=== PATIENT | male | born 1955 | race Caucasian/White ===

== ENCOUNTER 2016-10-15 19:58 | Emergency (ER) | payer SELFPAY ==
[~2016-10-15 19:58] MED LIST: LEVE500 PO; MEMA5 PO; MIRTA15 PO
--- NOTE | 2016-10-15 20:08 | PD ---
HPI . 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 PFSH Social History Tobacco Use: Yes Review of Systems ROS Limitations: Altered Mental Status, Poor Historian Except as stated in HPI: all other systems reviewed are Neg Physical Exam Narrative GENERAL: Disheveled, older man who is sitting in the wheelchair in no acute distress. SKIN: Warm and dry. HEAD: Atraumatic. Normocephalic. EYES: Pupils equal and round. Extraocular movements are intact. ENT: No nasal bleeding or discharge. Mucous membranes pink and moist. NECK: Trachea midline. Neck is supple. CARDIOVASCULAR: Regular rate and rhythm. Heart sounds are normal. RESPIRATORY: No accessory muscle use. Lungs sound clear. GASTROINTESTINAL: Abdomen soft, non-tender, nondistended. MUSCULOSKELETAL: No obvious deformities. No edema. NEUROLOGICAL: Awake and alert. No obvious cranial nerve deficits. Motor grossly within normal limits. Normal speech. PSYCHIATRIC: The patient is able to tell me his name and that he is in a hospital in [facility]. He does not know the day of the week, the month, or the year. Data Data Last Documented VS Vital Signs Date Time Temp Pulse Resp B/P Pulse Ox O2 Delivery O2 Flow Rate FiO2 10/15/16 20:20 97.2 73 18 145/75 98 Orders Complete Blood Count With Diff (10/15/16 20:03) Comprehensive Metabolic Panel (10/15/16 20:03) Urinalysis - C+S If Indicated (10/15/16 20:03) Psych Screen (10/15/16 20:03) Drug Screen, Random Urine (10/15/16 20:03) Alcohol (Ethanol) (10/15/16 20:03) Labs Laboratory Tests Test 10/15/16 20:35 White Blood Count 3.7 TH/MM3 Red Blood Count 4.00 MIL/MM3 Hemoglobin 12.8 GM/DL Hematocrit 36.5 % Mean Corpuscular Volume 91.3 FL Mean Corpuscular Hemoglobin 32.1 PG Mean Corpuscular Hemoglobin 35.2 % Concent Red Cell Distribution Width 13.1 % Platelet Count 59 TH/MM3 Mean Platelet Volume 7.9 FL Neutrophils (%) (Auto) 56.1 % Lymphocytes (%) (Auto) 27.6 % Monocytes (%) (Auto) 15.2 % Eosinophils (%) (Auto) 0.8 % Basophils (%) (Auto) 0.3 % Neutrophils # (Auto) 2.1 TH/MM3 Lymphocytes # (Auto) 1.0 TH/MM3 Monocytes # (Auto) 0.6 TH/MM3 Eosinophils # (Auto) 0.0 TH/MM3 Basophils # (Auto) 0.0 TH/MM3 CBC Comment AUTO DIFF Sodium Level 142 MEQ/L Potassium Level 3.9 MEQ/L Chloride Level 108 MEQ/L Carbon Dioxide Level 29.4 MEQ/L Anion Gap 5 MEQ/L Blood Urea Nitrogen 14 MG/DL Creatinine 1.10 MG/DL Estimat Glomerular Filtration 68 ML/MIN Rate Random Glucose 96 MG/DL Calcium Level 8.6 MG/DL Total Bilirubin 0.4 MG/DL Aspartate Amino Transf 56 U/L (AST/SGOT) Alanine Aminotransferase 100 U/L (ALT/SGPT) Alkaline Phosphatase 142 U/L Total Protein 7.6 GM/DL Albumin 3.5 GM/DL Ethyl Alcohol Level LESS THAN 3 MG/DL MDM Medical Decision Making Medical Screen Exam Complete: Yes Emergency Medical Condition: Yes Medical Record Reviewed: Yes (the patient really doesn't have any records in our system.) Differential Diagnosis Differential diagnosis of altered mental status includes but is not limited to infection, electrolyte abnormality, neurological event, intoxication Narrative Course Patient presents to us from a psychiatric facility for dementia and inability to care for himself. The patient will be medically cleared and then screened by side. CBC & BMP Diagram 10/15/16 20:35 Total bilirubin 0.4, AST 56, ALT 100, alkaline phosphatase 142. He is medically clear for psychiatric evaluation. Diagnosis Primary Impression: Dementia Qualified Code: F03.91 - Dementia associated with alcoholism with behavioral disturbance Condition: Stable Maria Isabel Woodward MD Oct 15, 2016 20:08
[2016-10-15 20:20] VITALS: BP 145/75; PULSE 73; RESP 18; TEMP 97.2; O2SAT 98
[2016-10-15 20:54] LABS: AUTOMATED NEUTROPHIL # 2.1 TH/MM3 (1.8-7.7); BASOPHIL % 0.3 % (0.0-2.0); EOSINOPHIL % 0.8 % (0.0-4.0); HEMATOCRIT 36.5 % (39.0-51.0); LYMPH % 27.6 % (9.0-44.0); MEAN CELL VOLUME 91.3 FL (80.0-100.0); MEAN CORPUSCULAR HEMOGLOBIN 32.1 PG (27.0-34.0); MEAN CORPUSCULAR HGB CONC 35.2 % (32.0-36.0); MONO % 15.2 % (0.0-8.0); NEUT % 56.1 % (16.0-70.0); PLATELET COUNT 59 TH/MM3 (150-450); RED CELL DISTRIBUTION WIDTH 13.1 % (11.6-17.2); WHITE BLOOD COUNT 3.7 TH/MM3 (4.0-11.0)
[2016-10-15 21:00] LABS: HEMO FLAGS AUTO DIFF
[2016-10-15 21:09] LABS: ANION GAP 5 MEQ/L (5-15)
[2016-10-15 21:14] LABS: ALKALINE PHOSPHATASE 142 U/L (45-117); ALT (GPT) 100 U/L (12-78); AST (GOT) 56 U/L (15-37); BICARBONATE 29.4 MEQ/L (21.0-32.0); BLOOD UREA NITROGEN 14 MG/DL (7-18); CHLORIDE 108 MEQ/L (98-107); GLOMERULAR FILTRATION RATE 68 ML/MIN (>89); POTASSIUM 3.9 MEQ/L (3.5-5.1); SODIUM (NA) 142 MEQ/L (136-145); TOTAL BILIRUBIN ADULT 0.4 MG/DL (0.2-1.0)
[2016-10-15 21:41] LABS: SCAN/DIFF AUTO DIFF CONFIRMED
[2016-10-16 01:24] VITALS: BP 136/72; PULSE 76; RESP 16; O2SAT 96
[2016-10-16 06:32] VITALS: BP_SYST 111; BP_SYST 157; BP_DIAS 65; BP_DIAS 76; PULSE 67; PULSE 75; RESP 17; RESP 20; O2SAT 95; O2SAT 99
[2016-10-16] MEDS ORDERED: ACETAMINOPHEN 325 MG TAB PO ONE (08:45)
[2016-10-16 11:53] VITALS: BP 157/76; PULSE 76; RESP 20; O2SAT 99
[2016-10-16 14:23] VITALS: BP 161/78; PULSE 81; RESP 18; O2SAT 94
--- NOTE | 2016-10-16 16:17 | PD ---
History of Present Illness Chief Complaint: Psychiatric Symptoms Time Seen by Provider: 15:15 Travel History International Travel<30 Days: No Contact w/Intl Traveler<30days: No Known affected area: No Legal Status Legal Status: Wolf Act Wolf Act Comment: BA signed by: Rosa Chen LCSW, Lic. 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 Documentation that is received from [facility] he was originally placed under a BA from [facility] on Sep for evaluation. This BA report also orders that in the event that the BA is lifted that the [facility] Sheriff's office be contacted so that he can be taken back to the appropriate senior living center. History and clinical information is limited due to the patient's inability to provide information. As per EMR this patient has had no previous contact with [facility] psychiatry department. He has been monitored in J pod and he has presented no behavioral concerns. he has required assistance with all ADL's. He is awake, calm and pleasant on approach. He appears older than stated age. He reports that he is 30 years old and that it is 1976. He knows that he is in the hospital but is unclear why he is here. He volunteers " They want to put me back in correction". Speech is clear and he answers most questions. He denies any current hallucinations. There are no delusions and no paranoia. He has been under behavioral control and has not been agitated for most of the day. At some point when he got up to walk to the bathroom a male staff member followed him as he was unsteady and the patient became upset with such staff member. He deescalated quickly with verbal intervention and apologized to such staff member. He slept well and ate all his meals. he was bale to make his needs known to staff members. [facility] Past Medical History Medical History: Denies Significant Hx Cerebrovascular Accident: Yes Respiratory: Yes Past Surgical History Tonsillectomy: Yes Psychiatric History Psychiatric History Hx Psychiatric Treatment: As per records accompanying this patietn he received tretametn for depression as well as previous admissions under BA status. History of Inpatient Treatment: Yes Guns or firearms in home: No Social History As per records included in this report he is single. Has been at [facility] since 2014. Hx of multiple arrests since 1976 Hx Alcohol Use: Yes (too much) Hx Tobacco Use: Yes Hx Substance Use: Yes (marijuana) Allergies-Medications (Allergen,Severity, Reaction): Coded Allergies: No Known Allergies (Unverified , 10/16/16) Reported Meds & Prescriptions Reported Meds & Active Scripts Active Active Prescriptions or Reported Medications Unobtainable Review of Systems ROS Limitations: Clinical Condition Exam Alert: Yes [place]: Person, Place (Knows he is in a hospital ), Date (1976 ) Mood: Calm Affect: Euthymic Speech: Clear (Limited repsonses but makes an effort at answering questions.) Eye Contact: Normal Memory Intact: Comment (impaired) Hallucinations: Other (deneis any) Suicidal: Ideation (denies ) Homicidal: Ideation (denies) Insight/Judgement poor. impaired MDM Medical Decision Making Medical Record Reviewed: Yes Assessment/Plan 61 year old male with history of alcohol dependence and neurocognitive impairment under a BA. At this time he does not endorse any psychosis, no aminah and no suicidal or homicidal ideation, intent or plan. He does exhibit memory impairment but there are no benefits to be obtained from an inpatient psychiatric hospitalization. He has been stabilized on current medications for some time now. He does not meet criteria for BA . He will be returned to the custody of the dept of corrections. Orders Complete Blood Count With Diff (10/15/16 20:03) Comprehensive Metabolic Panel (10/15/16 20:03) Urinalysis - C+S If Indicated (10/15/16 20:03) Psych Screen (10/15/16 20:03) Drug Screen, Random Urine (10/15/16 20:03) Alcohol (Ethanol) (10/15/16 20:03) Diet Regular Basic (10/16/16 Breakfast) Acetaminophen (Tylenol) (10/16/16 08:45) Diet Regular Basic (10/16/16 Lunch) Quetiapine (Seroquel) (10/16/16 16:30) Sertraline (Zoloft) (10/16/16 16:30) Sertraline (Zoloft) (10/16/16 16:30) Results Vital Signs Date Time Temp Pulse Resp B/P Pulse Ox O2 Delivery O2 Flow Rate FiO2 10/16/16 14:23 81 18 161/78 94 Room Air 10/16/16 11:53 76 20 157/76 99 Room Air 10/16/16 06:32 75 20 157/76 99 Room Air 10/16/16 01:24 76 16 136/72 96 Room Air 10/15/16 20:20 97.2 73 18 145/75 98 Laboratory Tests Test 10/15/16 20:35 White Blood Count 3.7 Red Blood Count 4.00 Hemoglobin 12.8 Hematocrit 36.5 Mean Corpuscular Volume 91.3 Mean Corpuscular Hemoglobin 32.1 Mean Corpuscular Hemoglobin 35.2 Concent Red Cell Distribution Width 13.1 Platelet Count 59 Mean Platelet Volume 7.9 Neutrophils (%) (Auto) 56.1 Lymphocytes (%) (Auto) 27.6 Monocytes (%) (Auto) 15.2 Eosinophils (%) (Auto) 0.8 Basophils (%) (Auto) 0.3 Neutrophils # (Auto) 2.1 Lymphocytes # (Auto) 1.0 Monocytes # (Auto) 0.6 Eosinophils # (Auto) 0.0 Basophils # (Auto) 0.0 CBC Comment AUTO DIFF Differential Comment AUTO DIFF CONFIRMED Sodium Level 142 Potassium Level 3.9 Chloride Level 108 Carbon Dioxide Level 29.4 Anion Gap 5 Blood Urea Nitrogen 14 Creatinine 1.10 Estimat Glomerular Filtration 68 Rate Random Glucose 96 Calcium Level 8.6 Total Bilirubin 0.4 Aspartate Amino Transf 56 (AST/SGOT) Alanine Aminotransferase 100 (ALT/SGPT) Alkaline Phosphatase 142 Total Protein 7.6 Albumin 3.5 Ethyl Alcohol Level LESS THAN 3 Diagnosis Primary Impression: Dementia Psychiatrically Cleared: Yes Prescriptions Unable to Obtain Active Prescriptions or Reported Meds Disposition: [address] ENFORCEMNT Condition: Stable Problem Qualifiers Primary Impression: Dementia Qualified Code: F03.91 - Dementia associated with alcoholism with behavioral disturbance Li Zepeda Oct 16, 2016 16:17
[2016-10-16] MEDS ORDERED: SERTRALINE HCL 100 MG TAB PO ONE (16:30)
[2016-10-16] MEDS ORDERED: SERTRALINE HCL 50 MG TAB PO ONE (16:30)
[2016-10-16] MEDS ORDERED: QUEtiapine FUMARATE 200 MG TAB PO ONE (16:30)
== END 2016-10-16 20:11 | disposition home or self-care (01) ==
LOC: NEPA 19:58 → MERGE 19:58 → NEPJ 10-16 20:11
DX: F03.90 Unspecified dementia, unspecified severity, without behavioral disturbance, psychotic disturbance, mood disturbance, and anxiety (principal); F10.27 Alcohol dependence with alcohol-induced persisting dementia; F10.20 Alcohol dependence, uncomplicated; Z72.0 Tobacco use; Y90.9 Presence of alcohol in blood, level not specified; F12.10 Cannabis abuse, uncomplicated; Z86.73 Personal history of transient ischemic attack (TIA), and cerebral infarction without residual deficits
CPT/HCPCS: 80053; 80320; 85025; 99283

== ENCOUNTER 2017-01-03 17:21 | Emergency (ER) | payer OTHER ==
[~2017-01-03] VITALS: Ht 177.8 cm; Wt 102.0 kg
--- NOTE | 2017-01-03 18:46 | PD ---
HPI Chief Complaint: psychiatry evaluation Time Seen by Provider: 18:20 Travel History International Travel<30 days: No Contact w/Intl Traveler<30days: No Traveled to known affect area: No History of Present Illness HPI 61-year-old male presents under court order for psychiatric evaluation. History is limited from the patient and therefore all history was obtained from the patient's paperwork. It appears that the patient is under arrest for resisting arrest with violence and trespassing. 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 He saw Dr. Singh, PhD, and was felt to be incompetent to hold trial. Therefore because of this it was ordered that he be transferred here for involuntary examination to begin with civil commitment process. The patient has no complaints at this time and has stating that he does not really want to talk about anything. He knows that he is at [place] but he does not know why. PFSH Past Medical History Cerebrovascular Accident: Yes Respiratory: Yes Past Surgical History Tonsillectomy: Yes Social History Alcohol Use: Yes (too much) Tobacco Use: Yes Substance Use: Yes (marijuana) Allergies-Medications (Allergen,Severity, Reaction): Coded Allergies: No Known Allergies (Unverified , 01/03/17) Reported Meds & Prescriptions Reported Meds & Active Scripts Active Reported Zoloft (Sertraline HCl) Unknown Strength Tab Unknown Dose PO DAILY Seroquel (Quetiapine Fumarate) Unknown Strength Tab Unknown Dose PO BID Review of Systems ROS Limitations: Clinical Condition, Refused Except as stated in HPI: all other systems reviewed are Neg Physical Exam Exam Limitations: Clinical Condition, Poor Historian Narrative GENERAL: Disheveled appearing male in no acute distress SKIN: Warm and dry. HEAD: Atraumatic. Normocephalic. EYES: Pupils equal and round. No scleral icterus. No injection or drainage. ENT: No nasal bleeding or discharge. Mucous membranes pink and moist. NECK: Trachea midline. No JVD. CARDIOVASCULAR: Regular rate and rhythm. No murmur appreciated. RESPIRATORY: No accessory muscle use. Clear to auscultation. Breath sounds equal bilaterally. GASTROINTESTINAL: Abdomen soft, non-tender, nondistended. Hepatic and splenic margins not palpable. MUSCULOSKELETAL: No obvious deformities. No clubbing. No cyanosis. No edema. NEUROLOGICAL: Awake and alert. No obvious cranial nerve deficits. Motor grossly within normal limits. Mildly comprehensible speech. Data Data Last Documented VS Vital Signs Date Time Temp Pulse Resp B/P Pulse Ox O2 Delivery O2 Flow Rate FiO2 01/04/17 07:40 64 20 140/85 100 Room Air 01/03/17 20:56 98.5 Orders Complete Blood Count With Diff (01/03/17 18:27) Comprehensive Metabolic Panel (01/03/17 18:27) Psych Screen (01/03/17 18:) Drug Screen, Random Urine (01/03/17 18:27) Diet Regular Basic (01/04/17 Breakfast) Labs Laboratory Tests Test 01/03/17 21:00 White Blood Count 2.4 TH/MM3 Red Blood Count 4.05 MIL/MM3 Hemoglobin 12.4 GM/DL Hematocrit 36.4 % Mean Corpuscular Volume 89.7 FL Mean Corpuscular Hemoglobin 30.6 PG Mean Corpuscular Hemoglobin 34.0 % Concent Red Cell Distribution Width 14.0 % Platelet Count 53 TH/MM3 Mean Platelet Volume 8.9 FL Neutrophils (%) (Auto) 49.4 % Lymphocytes (%) (Auto) 30.8 % Monocytes (%) (Auto) 17.9 % Eosinophils (%) (Auto) 1.4 % Basophils (%) (Auto) 0.5 % Neutrophils # (Auto) 1.2 TH/MM3 Lymphocytes # (Auto) 0.7 TH/MM3 Monocytes # (Auto) 0.4 TH/MM3 Eosinophils # (Auto) 0.0 TH/MM3 Basophils # (Auto) 0.0 TH/MM3 CBC Comment AUTO DIFF Differential Comment AUTO DIFF CONFIRMED Platelet Estimate LOW Platelet Morphology Comment NORMAL Sodium Level 145 MEQ/L Potassium Level 4.6 MEQ/L Chloride Level 113 MEQ/L Carbon Dioxide Level 27.8 MEQ/L Anion Gap 4 MEQ/L Blood Urea Nitrogen 16 MG/DL Creatinine 0.98 MG/DL Estimat Glomerular Filtration 78 ML/MIN Rate Random Glucose 79 MG/DL Calcium Level 8.4 MG/DL Total Bilirubin 0.4 MG/DL Aspartate Amino Transf 49 U/L (AST/SGOT) Alanine Aminotransferase 68 U/L (ALT/SGPT) Alkaline Phosphatase 135 U/L Total Protein 6.8 GM/DL Albumin 3.3 GM/DL MDM Medical Decision Making Medical Screen Exam Complete: Yes Emergency Medical Condition: Yes Medical Record Reviewed: Yes Differential Diagnosis Korsakoff dementia, acute psychosis, schizophrenia, encephalitis Narrative Course 61-year-old male presents from halfway for psychiatric evaluation. He has been sent here under handkerchief folder order for further psychiatric evaluation. Mental health screening discussed with the patient. Psychiatric screen ordered. Lab work has been reviewed. The patient is medically cleared for psychiatric disposition. Diagnosis Primary Impression: Medical clearance for psychiatric admission Boo Humphreys January 03, 2017 18:46
--- NOTE | 2017-01-03 20:06 | PD ---
Data Data Last Documented VS Vital Signs Date Time Temp Pulse Resp B/P Pulse Ox O2 Delivery O2 Flow Rate FiO2 01/03/17 20:56 98.5 71 16 154/75 100 Orders Complete Blood Count With Diff (01/03/17 18:27) Comprehensive Metabolic Panel (01/03/17 18:27) Psych Screen (01/03/17 18:27) Drug Screen, Random Urine (01/03/17 18:27) Labs Laboratory Tests Test 01/03/17 21:00 White Blood Count 2.4 TH/MM3 Red Blood Count 4.05 MIL/MM3 Hemoglobin 12.4 GM/DL Hematocrit 36.4 % Mean Corpuscular Volume 89.7 FL Mean Corpuscular Hemoglobin 30.6 PG Mean Corpuscular Hemoglobin 34.0 % Concent Red Cell Distribution Width 14.0 % Platelet Count 53 TH/MM3 Mean Platelet Volume 8.9 FL Neutrophils (%) (Auto) 49.4 % Lymphocytes (%) (Auto) 30.8 % Monocytes (%) (Auto) 17.9 % Eosinophils (%) (Auto) 1.4 % Basophils (%) (Auto) 0.5 % Neutrophils # (Auto) 1.2 TH/MM3 Lymphocytes # (Auto) 0.7 TH/MM3 Monocytes # (Auto) 0.4 TH/MM3 Eosinophils # (Auto) 0.0 TH/MM3 Basophils # (Auto) 0.0 TH/MM3 CBC Comment AUTO DIFF Differential Comment AUTO DIFF CONFIRMED Platelet Estimate LOW Platelet Morphology Comment NORMAL Sodium Level 145 MEQ/L Potassium Level 4.6 MEQ/L Chloride Level 113 MEQ/L Carbon Dioxide Level 27.8 MEQ/L Anion Gap 4 MEQ/L Blood Urea Nitrogen 16 MG/DL Creatinine 0.98 MG/DL Estimat Glomerular Filtration 78 ML/MIN Rate Random Glucose 79 MG/DL Calcium Level 8.4 MG/DL Total Bilirubin 0.4 MG/DL Aspartate Amino Transf 49 U/L (AST/SGOT) Alanine Aminotransferase 68 U/L (ALT/SGPT) Alkaline Phosphatase 135 U/L Total Protein 6.8 GM/DL Albumin 3.3 GM/DL MDM Supervised Visit with ANALI: Yes Narrative Course I reviewed the patient's case and discussed with Boo SALDAÑA. I have not physically examine the patient. Earlier apparently there was some confusion by the officers ever escorting the patient whether or not they could leave him here. I reviewed the court order there are only 3 pages of 4 but it is signed by Mila Medina Case Hog Man. There are 3 orders on page 3. the first is that the patient will be transported to [facility], second is that he she'll be evaluated by staff for possibility of involuntary commitment under a Wolf act. This order will be deferred to the staff psychiatrist and patient will likely have to be held in the emergency department overnight until the psychiatrist comes in. The third part of the order is "should the defendant not be committed to a [facility] facility the administrative [facility]'s directed to notify the agricultural loan officer [facility] of same so the defendant may be transported by the Vending Attendant or his designee back to the [facility] to wait another hearing before this Court. The defendant she 'll not be released into the community as the court retains jurisdiction in this cause." The project landscape architect will be scanned into the patient's chart for further reference. My staff is communicated to the officers escorting the patient that they will have to remain or their relief will have to remain at the patient's bedside. These are arm guards protecting the a shunt and he will not be appropriate for J pod for that reason. Oh Grewal MD January 03, 2017 20:06
[2017-01-03 20:56] VITALS: BP 154/75; PULSE 71; RESP 16; TEMP 98.5; O2SAT 100
[2017-01-03] MEDS ORDERED: SERO25TA PO (21:03)
[2017-01-03] MEDS ORDERED: ZOLO25TA PO (21:04)
[2017-01-03 22:27] LABS: AUTOMATED NEUTROPHIL # 1.2 TH/MM3 (1.8-7.7); BASOPHIL % 0.5 % (0.0-2.0); EOSINOPHIL % 1.4 % (0.0-4.0); HEMATOCRIT 36.4 % (39.0-51.0); LYMPH % 30.8 % (9.0-44.0); LYMPHOCYTE # 0.7 TH/MM3 (1.0-4.8); MEAN CELL VOLUME 89.7 FL (80.0-100.0); MEAN CORPUSCULAR HEMOGLOBIN 30.6 PG (27.0-34.0); MONO % 17.9 % (0.0-8.0); NEUT % 49.4 % (16.0-70.0); PLATELET COUNT 53 TH/MM3 (150-450); RED BLOOD COUNT 4.05 MIL/MM3 (4.50-5.90); WHITE BLOOD COUNT 2.4 TH/MM3 (4.0-11.0)
[2017-01-03 22:34] LABS: HEMO FLAGS AUTO DIFF
[2017-01-03 22:56] LABS: ALT (GPT) 68 U/L (12-78); ANION GAP 4 MEQ/L (5-15); AST (GOT) 49 U/L (15-37); BICARBONATE 27.8 MEQ/L (21.0-32.0); BLOOD UREA NITROGEN 16 MG/DL (7-18); CHLORIDE 113 MEQ/L (98-107); GLOMERULAR FILTRATION RATE 78 ML/MIN (>89); POTASSIUM 4.6 MEQ/L (3.5-5.1); SODIUM (NA) 145 MEQ/L (136-145)
[2017-01-03 22:58] LABS: ALKALINE PHOSPHATASE 135 U/L (45-117); TOTAL BILIRUBIN ADULT 0.4 MG/DL (0.2-1.0)
[2017-01-03 22:59] LABS: PLATELET ESTIMATE SMEAR LOW (NORMAL); PLATELET MORPHOLOGY NORMAL (NORMAL); SCAN/DIFF AUTO DIFF CONFIRMED
[2017-01-04 07:40] VITALS: BP 140/85; PULSE 64; RESP 20; O2SAT 100
--- NOTE | 2017-01-04 10:17 | PD ---
History of Present Illness Chief Complaint: Psychiatric Symptoms Time Seen by Provider: 09:45 Travel History International Travel<30 Days: No Contact w/Intl Traveler<30days: No Known affected area: No Legal Status Legal Status: Ex Parte History of Present Illness: This is a 61-year-old male with a long-standing reported history of mental illness, brought to this facility under an ex-parte order signed by Field Artillery Radar Operator case. There appear to be too questions asked by [employer] Artillery Radar Operator case, including the patient's competency to stand trial and whether the patient meets civil commitment criteria. This physician saw the patient and does find the patient to be disoriented, disorganized, easily confused and most likely he has a long- standing history of schizophrenia. However, the patient is clearly denying any suicidal ideation, plan or intent. He is also clearly denying any desire to hurt others. He furthermore denies hallucinations and delusions but does demonstrate loose associations. This physician spoke to the patient's correctional officers who are in the room with him and apparently the patient has been in and out of [facility] for "a long time". As such, the patient obviously has a place to stay and is being cared for. PFSH Past Medical History Cerebrovascular Accident: Yes Dementia: Yes Respiratory: Yes Past Surgical History Tonsillectomy: Yes Psychiatric History Psychiatric History Hx Psychiatric Treatment: As per records accompanying this patietn he received tretametn for depression as well as previous admissions under BA status. History of Inpatient Treatment: Yes Social History Hx Alcohol Use: Yes (too much) Hx Tobacco Use: Yes Hx Substance Use: Yes (marijuana) Allergies-Medications (Allergen,Severity, Reaction): Coded Allergies: No Known Allergies (Unverified , 01/03/17) Reported Meds & Prescriptions Reported Meds & Active Scripts Active Reported Zoloft (Sertraline HCl) Unknown Strength Tab Unknown Dose PO DAILY Seroquel (Quetiapine Fumarate) Unknown Strength Tab Unknown Dose PO BID Review of Systems ROS Limitations: Clinical Condition, Poor Historian Exam Exam Limitations: Clinical Condition, Poor Historian Alert: Yes [place]: Person, Place Mood: Calm Affect: Blunted Speech: Illogical Eye Contact: Indirect Memory Intact: Immediate Insight/Judgement Impaired MDM Medical Decision Making Medical Record Reviewed: Yes Assessment/Plan This physician spent considerable time reviewing the patient's records, which were brought with him. He had an evaluation this morning as well by an outside provider. This physician also spoke with Mr. Bazan, hospital corporate administrator and the nurse publication manager, Jojo. It is this physician's opinion the patient does not meet Wolf act criteria at this time. He is not suicidal or homicidal and he is being cared for by the [facility]. This physician did not perform an evaluation regarding the patient's competency to stand trial but apparently this was performed earlier today by the same outside provider. Finally, as discussed with hospital administration, this physician does not feel the patient currently needs hospitalization for acute care on a psychiatric unit in this facility. Orders Complete Blood Count With Diff (01/03/17 18:27) Comprehensive Metabolic Panel (01/03/17 18:27) Psych Screen (01/03/17 18:27) Drug Screen, Random Urine (01/03/17 18:) Diet Regular Basic (01/04/17 Breakfast) Results Vital Signs Date Time Temp Pulse Resp B/P Pulse Ox O2 Delivery O2 Flow Rate FiO2 01/04/17 07:40 64 20 140/85 100 Room Air 01/03/17 20:56 98.5 71 16 154/75 100 Laboratory Tests Test 01/03/17 21:00 White Blood Count 2.4 Red Blood Count 4.05 Hemoglobin 12.4 Hematocrit 36.4 Mean Corpuscular Volume 89.7 Mean Corpuscular Hemoglobin 30.6 Mean Corpuscular Hemoglobin 34.0 Concent Red Cell Distribution Width 14.0 Platelet Count 53 Mean Platelet Volume 8.9 Neutrophils (%) (Auto) 49.4 Lymphocytes (%) (Auto) 30.8 Monocytes (%) (Auto) 17.9 Eosinophils (%) (Auto) 1.4 Basophils (%) (Auto) 0.5 Neutrophils # (Auto) 1.2 Lymphocytes # (Auto) 0.7 Monocytes # (Auto) 0.4 Eosinophils # (Auto) 0.0 Basophils # (Auto) 0.0 CBC Comment AUTO DIFF Differential Comment AUTO DIFF CONFIRMED Platelet Estimate LOW Platelet Morphology Comment NORMAL Sodium Level 145 Potassium Level 4.6 Chloride Level 113 Carbon Dioxide Level 27.8 Anion Gap 4 Blood Urea Nitrogen 16 Creatinine 0.98 Estimat Glomerular Filtration 78 Rate Random Glucose 79 Calcium Level 8.4 Total Bilirubin 0.4 Aspartate Amino Transf 49 (AST/SGOT) Alanine Aminotransferase 68 (ALT/SGPT) Alkaline Phosphatase 135 Total Protein 6.8 Albumin 3.3 Diagnosis Primary Impression: Schizophrenia, disorganized, chronic Hussein Calle MD January 04, 2017 10:17
== END 2017-01-04 11:01 ==
LOC: MERGE 17:21 → NEDAMB 17:21 → NEPD 01-04 11:01
DX: F20.1 Disorganized schizophrenia (principal); F10.96 Alcohol use, unspecified with alcohol-induced persisting amnestic disorder; Z72.0 Tobacco use; Z86.73 Personal history of transient ischemic attack (TIA), and cerebral infarction without residual deficits
CPT/HCPCS: 80053; 85025; 99284

== ENCOUNTER 2018-02-16 19:45 | Observation (INO) ==
[2018-02-16] MEDS ORDERED: Sod Chloride 0.9% Inj 1,000 ML IV.CONT SCH (20:45)
--- NOTE | 2018-02-16 21:03 | ED ---
HPI General Chief complaint: Urogenital-Male Stated complaint: medical/Evac Time Seen by Provider: 02/16/18 20:29 Source: patient and other (Records from [facility]) Mode of arrival: EMS Limitations: altered mental status History of Present Illness HPI narrative: The patient is a 62 year old male who presents to the [facility] emergency department with a history of arriving by ambulance services from the [facility] with a report of difficulty performing his activities of daily living. The patient has a history of psychiatric disorder and is under a Wolf act. The patient himself denies any acute complaints. The patient does have slightly slurred speech. He reports that he had some abdominal pain earlier today, however he reports having no abdominal pain today. There was also a report from ambulance services that the patient had incontinence of urine. He denies having any dysuria, urinary frequency, or urinary urgency. On review of systems otherwise, the patient denies having any known recent fevers, cough or congestion, neck pain, chest pain, shortness of breath, vomiting, diarrhea, one-sided weakness, facial droop, difficulty with word finding ability, numbness or tingling to his extremities, or vision change MD complaint: none per patient Related Data Home Medications Medication Instructions Recorded Confirmed levetiracetam [Keppra] 500 mg BID 02/16/18 02/16/18 quetiapine [Seroquel XR] 150 mg PO DAILY 02/16/18 02/16/18 sertraline 50 mg PO DAILY 02/16/18 02/16/18 Allergies Allergy/AdvReac Type Severity Reaction Status Date / Time codeine Allergy Severe Itching Verified 02/16/18 21:33 penicillin G Allergy Severe Hallucinati Verified 02/16/18 21:33 ons Review of Systems ROS Unobtainable All other systems reviewed negative except as stated in HPI PMFSH History History Provided By: Medical Record Medical History Medical History Alcohol abuse (Acute) CAD (coronary artery disease) (Acute) Dementia (Acute) Depression (Acute) History of traumatic brain injury (Acute) Hyperlipidemia (Acute) Hypertension (Acute) Seizure disorder (Acute) Surgical History Surgical History History of appendectomy (Acute) History of tonsillectomy (Acute) Social History Social History Substance History: No History of Abuse Second Hand Smoke Exposure: No Smoking Status: Current every day smoker Tobacco Type: Cigarettes How Often Do You Have a Drink Containing Alcohol: 4 or more times a week Recent Travel in [facility] within the Last 8 Weeks: No Recent Out of Country Travel within the Last 8 Weeks: No Exam Narrative Exam Narrative: General: The patient is a well-developed well-nourished male in no acute distress. Head and Neck exam: Head is normocephalic atraumatic. Eyes: EOMI, pupils are equal round and reactive to light. Nose: Midline septum with pink mucous membranes Mouth: Dentition unremarkable. Moist mucus membranes. Posterior oropharynx is not erythematous. No tonsillar hypertrophy. Uvula midline. Airway patent. Neck: No palpable lymphadenopathy. No nuchal rigidity. No thyromegaly. Cardiovascular: Regular rate and rhythm without murmurs, gallops, or rubs. Lungs: Clear to auscultation bilaterally. No wheezes, rhonchi, or rales. Abdomen: Soft, without tenderness to palpation in all 4 quadrants of the abdomen. No guarding, rebound, or rigidity. Normal bowel sounds are audible. Negative Hernandes's sign. No tenderness on palpation of McBurney's point. Extremities: No clubbing, cyanosis, or edema. 2+ pulses in all 4 extremities. No calf tenderness on palpation. Back: No spinous process tenderness to palpation. No costovertebral angle tenderness to palpation. Neurologic Exam: Cranial nerves 2-12 were intact on exam. Strength is 5/5 in all 4 extremities. No sensory deficits noted. Skin Exam: No rash noted. Intact skin that is warm and dry. Course Hospital Course: During the course of the patient's emergency department visit, the patient's history, examination, and differential diagnosis were reviewed with the patient. The patient was placed on a epic specialist with oximetry and frequent blood pressure monitoring. The patient had IV access obtained and blood work sent for analysis. Given the fact that the patient had reported urinary incontinence and reported abdominal pain earlier today. A Wallace catheter will be placed to gravity to assess for possible urinary retention and to obtain a sterile urine for analysis. This will be removed if the patient has no evidence of retention. The record from the [facility] states that the patient is beyond their scope of care. The patient will be evaluated for any new findings, and a psychiatric screen will be ordered here for pending medical clearance and then admission to the psychiatric service at this facilty. The patient was initially provided Normal saline IV fluids. The patient has been medically cleared for evaluation by the psychiatric. I anticipate that the patient will require inpatient psychiatric evaluation at this facility as the patient is beyond the scope of care at the [facility] according to their paperwork. Initial Documented Vital Signs Temperature 97.8 F 02/16/18 20:46 Pulse Rate 57 L 02/16/18 20:46 Respiratory Rate 16 02/16/18 20:46 Blood Pressure 141/70 H 02/16/18 20:46 Pulse Oximetry 99 02/16/18 20:46 Last Documented Vital Signs Temperature 97.8 F 02/16/18 20:46 Pulse Rate 70 02/16/18 23:02 Respiratory Rate 16 02/16/18 23:02 Blood Pressure 145/70 H 02/16/18 23:02 Pulse Oximetry 98 02/16/18 23:02 Medical Decision Making MDM Narrative Medical decision making narrative: The patients laboratory studies remarkable for a CBC that shows a white count of 2.9, platelets 55 which is comparable to prior laboratory studies on this patient, chemistry is unremarkable. Urinalysis shows no signs of infection. CT scan of the abdomen and pelvis shows gallstones, no other acute abnormality. CT scan of the brain shows atrophy, no other acute abnormality. The patient has been medically cleared for evaluation by psychiatry for admission to the psychiatric service. Differential Diagnosis Differential Diagnosis: Intracranial abnormality, versus electrolyte abnormality , versus urinary tract infection Lab Data Result diagrams: 02/16/18 21:25 02/16/18 21:25 Lab Results 02/16/18 02/16/18 02/16/18 Range/Units 21:25 21:25 22:20 WBC 2.9 L (4.0-11.0) th/mm3 RBC 4.37 L (4.50-5.90) mil/mm3 Hgb 13.5 (13.0-17.0) gm/dL Hct 39.7 (39.0-51.0) % MCV 90.9 (80.0-100.0) fL MCH 30.9 (27.0-34.0) pg MCHC 34.0 (32.0-36.0) % RDW 13.7 (11.6-17.2) % Plt Count 55 L (150-450) th/mm3 MPV 9.4 (7.0-11.0) fL Prelim Diff (Auto) Slide review pending Neut % (Auto) 54.6 (16.0-70.0) % Lymph % (Auto) 29.8 (9.0-44.0) % [place] % (Auto) 12.9 H (0.0-8.0) % Eos % (Auto) 2.1 (0.0-4.0) % Baso % (Auto) 0.6 (0.0-2.0) % Neut # (Auto) 1.6 L (1.8-7.7) th/mm3 Lymph # (Auto) 0.9 L (1.0-4.8) th/mm3 [place] # (Auto) 0.4 (0.0-0.9) th/mm3 Eos # (Auto) 0.1 (0.0-0.4) th/mm3 Baso # (Auto) 0.0 (0.0-0.2) th/mm3 WBC Differential . Diff Scan Auto diff confirmed Differential Comment . Sodium 145 (136-145) meq/L Potassium 4.5 (3.5-5.1) meq/L Chloride 111 H (98-107) meq/L Carbon Dioxide 26.9 (21.0-32.0) meq/L Anion Gap 7 (5-15) meq/L BUN 13 (7-18) mg/dL Creatinine 0.93 (0.60-1.30) mg/dL Estimated GFR 82 L (>89) mL/min Random Glucose 74 (74-106) mg/dL Calcium 8.1 L (8.5-10.1) mg/dL Total Bilirubin 0.5 (0.2-1.0) mg/dL AST 48 H (15-37) U/L ALT 38 (12-78) U/L Alkaline Phosphatase 85 (45-117) U/L Total Protein 7.4 (6.4-8.2) g/dL Albumin 3.5 (3.4-5.0) g/dL Urine Color Yellow (Yellw/Straw) Urine Clarity Clear (Clear) Urine pH 6.0 (5.0-8.5) Ur Specific [place] 1.019 (1.002-1.035) Urine Protein Negative (Neg-Trace) mg/dL Urine Glucose (UA) Negative (Negative) mg/dL Urine Ketones Negative (Negative) mg/dL Urine Occult Blood Negative (Negative) Urine Nitrate Negative (Negative) Urine Bilirubin Negative (Negative) Urine Urobilinogen 4 or greater (Less than 2) mg/dL Ur Leukocyte Esterase Negative (Negative) Urine RBC 2 (0-3) /hpf Urine WBC 1 (0-5) /hpf Urine Mucus Few H (Occasional) /lpf Micro UA Comment Cath-culture not ind Urine Culture Comments Cath-cult not ind Imaging Data Radiologist's impression: ITS Impressions Abdomen/Pelvis CT 02/17/18 00:00 CONCLUSION: 1. No acute findings. 2. Calcified gallstones. Head CT 02/17/18 00:00 CONCLUSION: 1. Moderate severity central cortical atrophy. 2. No acute findings in the brain. Discharge Plan Discharge Disposition Patient Disposition: 30 Still Patient Physicians Team ED Provider: Yissel Kenny Primary Care Provider: Primary Care Olamide Obrien Rxs /Orders / Referrals /Forms Prescriptions: No Action levetiracetam [Keppra] 250 mg Tablet 500 mg BID RF: 0 sertraline 50 mg Tablet 50 mg PO DAILY RF: 0 quetiapine [Seroquel XR] 150 mg Tablet Extended Release 24 Hr 150 mg PO DAILY RF: 0 Status ED Status: Medically Cleared
[2018-02-16 22:06] LABS: Baso % (Auto) 0.6 % (0.0-2.0); Eos # (Auto) 0.1 th/mm3 (0.0-0.4); Eos % (Auto) 2.1 % (0.0-4.0); Hematocrit 39.7 % (39.0-51.0); Hemoglobin 13.5 gm/dL (13.0-17.0); Lymph # (Auto) 0.9 th/mm3 (1.0-4.8); Lymph % (Auto) 29.8 % (9.0-44.0); Mean Corpuscular Hemoglobin 30.9 pg (27.0-34.0); Mean Corpuscular Volume 90.9 fL (80.0-100.0); Mean Platelet Volume 9.4 fL (7.0-11.0); Mono # (Auto) 0.4 th/mm3 (0.0-0.9); Mono % (Auto) 12.9 % (0.0-8.0); Neut # (Auto) 1.6 th/mm3 (1.8-7.7); Neut % (Auto) 54.6 % (16.0-70.0); Red Blood Count 4.37 mil/mm3 (4.50-5.90); Red Cell Distribution Width 13.7 % (11.6-17.2); White Blood Count 2.9 th/mm3 (4.0-11.0)
[2018-02-16 22:34] LABS: Platelet Count 55 th/mm3 (150-450)
[2018-02-16 22:44] LABS: Alkaline Phosphatase 85 U/L (45-117); Total Protein 7.4 g/dL (6.4-8.2)
[2018-02-16 23:07] LABS: Bilirubin,Urine Negative (Negative); Clarity,Urine Clear (Clear); Color,Urine Yellow (Yellw/Straw); Glucose,Urine (UA) Negative (Negative); Leukocyte Esterase,Urine Negative (Negative); Mucus,Urine Few /lpf (Occasional); Nitrite,Urine Negative (Negative); Specific Gravity,Urine 1.019 (1.002-1.035); Urobilinogen,Urine 4 or Greater mg/dL (Less than 2)
[2018-02-16 23:14] LABS: Alanine Aminotransferase 38 U/L (12-78); Albumin 3.5 g/dL (3.4-5.0); Anion Gap 7 meq/L (5-15); Aspartate Aminotransferase 48 U/L (15-37); Blood Urea Nitrogen 13 mg/dL (7-18); Calcium 8.1 mg/dL (8.5-10.1); Carbon Dioxide 26.9 meq/L (21.0-32.0); Chloride 111 meq/L (98-107); Glomerular Filtration Rate 82 mL/min (>89); Glucose,Random 74 mg/dL (74-106); Potassium 4.5 meq/L (3.5-5.1); Sodium 145 meq/L (136-145)
[2018-02-17] MEDS ORDERED: QUEtiapine 100 MG Tablet PO ONE (03:14)
--- NOTE | 2018-02-17 10:41 | P.HPFP ---
<Aide Sanchez - Last Filed: 02/17/18 21:03> History of Present Illness Primary Care Physician: No Primary Care Physician History of Present Illness: Mr. Hatch is a 62-year-old white male with a past medical history of alcohol abuse, schizophrenia presenting to the ED due to ex parte order from [facility]. After speaking with Cortez at [facility] it was reported that the patient was just received there from the [facility] for a psychiatric admission due to his schizophrenia. While at the facility the patient was actively hallucinating, seeing demons on his bed. As soon as he had arrived he started falling. He had fallen about 8-9 times in a 24 hour period. The patient was also incontinent and unable to perform his ADLs. He was confused and needed one-on-one care, therefore he was sent to the hospital under Wolf act. Upon interviewing the patient, he stated that he was caught with some guns and taken to [facility]. He states that he was at [facility] for alcohol detox. He states that he drinks alcohol every day. When asked to quantify, he states that he drinks too much. His last drink was a few days ago. His last alcohol withdrawal was a few weeks ago. He has been intubated before. He states that he does not feel that he is withdrawing now. Interviewing the patient was difficult due to his slurred speech, cognition, and confusion. - Diagnosis (1) Neurocognitive disorder (2) Schizophrenia (3) Alcohol abuse (4) Nutrition, metabolism, and development symptoms (5) DVT prophylaxis - Inpatient Certification If this patient has been admitted as an Inpatient: I certify that the inpatient services were ordered in accordance with Medicare regulations governing the order. This includes certification that hospital inpatient services are reasonable and necessary and in the case of services not specified as inpatient-only under 42 CFR 419.22(n), that they are appropriately provided as inpatient services in accordance to with the 2-midnight benchmark under 43 CFR 412.3(e) Review of Systems Constitutional: Reports chills, Reports fever(s) (few month), Reports night sweats Eyes: Reports blurry vision (wear glasses) Cardiovascular: Denies chest pain Respiratory: Reports cough, Reports coughing up blood, Reports shortness of breath Gastrointestinal: Reports abdominal pain (LLQ), Reports black, tarry stools Genitourinary: Reports decreased urination Neurologic: Reports localized weakness (left side) Hematologic/Lymphatic: Reports easy bruising PMFSH - History History Provided By: Patient, Medical Record - Medical / Surgical Hx Neg / Unobtainable Medical Problems Denied: Unable to Obtain Surgical History: Unable to Obtain - Medical History Medical History: Medical History (Last Reviewed 02/16/18 @ 21:05 by Yissel Kenny MD) Alcohol abuse CAD (coronary artery disease) Dementia Depression History of traumatic brain injury Hyperlipidemia Hypertension Seizure disorder - Surgical History Surgical History: Surgical History (Last Reviewed 02/17/18 @ 13:51 by Theresa Nielson RN) History of appendectomy History of tonsillectomy - Tobacco History Second Hand Smoke Exposure: No Tobacco Use In Past 30 Days: Yes Smoking Status: Current every day smoker Tobacco Type: Cigarettes - Alcohol History How Often Do You Have a Drink Containing Alcohol: 4 or more times a week - Substance Use History Substance History: No History of Abuse - Travel History Recent Travel in the [place] Within the Last 8 Weeks: No Recent Travel Out of the Country Within the Last 8 Weeks: No - Immunization History Tetanus Immunization: Unsure Hx Influenza Vaccine This Season: Unable to Assess Medications and Allergies Allergies Allergy/AdvReac Type Severity Reaction Status Date / Time codeine Allergy Severe Itching Verified 02/16/18 21:33 penicillin G Allergy Severe Hallucinati Verified 02/16/18 21:33 ons Home Medications Medication Instructions Recorded Confirmed Type levetiracetam [Keppra] 500 mg BID 02/16/18 02/16/18 History quetiapine [Seroquel XR] 150 mg PO DAILY 02/16/18 02/16/18 History sertraline 50 mg PO DAILY 02/16/18 02/16/18 History Exam Vital signs: Vital Signs 02/16/18 20:46 02/16/18 23:02 02/17/18 03:35 Temperature 97.8 F Pulse Rate 57 L 70 66 Respiratory Rate 16 16 16 Blood Pressure 141/70 H 145/70 H 130/70 Pulse Oximetry 99 98 97 02/17/18 07:00 Temperature Pulse Rate 54 L Respiratory Rate 16 Blood Pressure 131/71 Pulse Oximetry 99 Narrative: GENERAL: elderly male in soft restraints laying on bed, awake, alert SKIN: Warm and dry. HEAD: Atraumatic. Normocephalic. EYES: Pupils equal and round. No scleral icterus. No injection or drainage. ENT: No nasal bleeding or discharge. Mucous membranes pink and moist. Edentulous NECK: Trachea midline. No JVD. CARDIOVASCULAR: Regular rate and rhythm. RESPIRATORY: No accessory muscle use. Diffuse end expiratory wheezing. Breath sounds equal bilaterally. GASTROINTESTINAL: Abdomen obese, soft, non-tender, nondistended. Hepatic and splenic margins not palpable due to abdominal size. MUSCULOSKELETAL: Extremities without clubbing, cyanosis, or edema. No obvious deformities. NEUROLOGICAL: Awake and alert. No obvious cranial nerve deficits. Motor grossly within normal limits. Slurred speech. Oriented only to self. Results - Labs Result diagrams: 02/16/18 21:25 02/16/18 21:25 Abnormal lab results 02/16/18 02/16/18 02/16/18 Range/Units 21:25 21:25 22:20 WBC 2.9 L (4.0-11.0) th/mm3 RBC 4.37 L (4.50-5.90) mil/mm3 Plt Count 55 L (150-450) th/mm3 [place] % (Auto) 12.9 H (0.0-8.0) % Neut # (Auto) 1.6 L (1.8-7.7) th/mm3 Lymph # (Auto) 0.9 L (1.0-4.8) th/mm3 Chloride 111 H (98-107) meq/L Estimated GFR 82 L (>89) mL/min Calcium 8.1 L (8.5-10.1) mg/dL AST 48 H (15-37) U/L Urine Mucus Few H (Occasional) /lpf Short CBC 02/16/18 Range/Units 21:25 WBC 2.9 L (4.0-11.0) th/mm3 Hgb 13.5 (13.0-17.0) gm/dL Hct 39.7 (39.0-51.0) % Plt Count 55 L (150-450) th/mm3 BMP 02/16/18 21:25 Sodium 145 Potassium 4.5 Chloride 111 H Carbon Dioxide 26.9 BUN 13 Creatinine 0.93 Calcium 8.1 L Liver Function 02/16/18 Range/Units 21:25 Total Bilirubin 0.5 (0.2-1.0) mg/dL AST 48 H (15-37) U/L ALT 38 (12-78) U/L Alkaline Phosphatase 85 (45-117) U/L Albumin 3.5 (3.4-5.0) g/dL Urine 02/16/18 Range/Units 22:20 Urine Color Yellow (Yellw/Straw) Urine Clarity Clear (Clear) Urine pH 6.0 (5.0-8.5) Ur Specific [place] 1.019 (1.002-1.035) Urine Protein Negative (Neg-Trace) mg/dL Urine Glucose (UA) Negative (Negative) mg/dL - Imaging Impressions Abdomen/Pelvis CT 02/17/18 00:00 CONCLUSION: 1. No acute findings. 2. Calcified gallstones. Head CT 02/17/18 00:00 CONCLUSION: 1. Moderate severity central cortical atrophy. 2. No acute findings in the brain. CXR 02/17/18 No acute intrathoracic disease. Caprini VTE Risk Assessment Caprini VTE Risk Assessment: Moderate/High Risk (score >= 2) Caprini Risk Assessment Model: Point Value = 1 Point Value = 2 Point Value = 3 Point Value = 5 Age 41-60 Minor surgery BMI > 25 kg/m2 Swollen legs Varicose veins or History of unexplained or recurrent spontaneous Oral contraceptives or hormone replacement Sepsis (< 1 month) Serious lung disease, including pneumonia (< 1 month) Abnormal pulmonary function Acute myocardial infarction Congestive heart failure (< 1 month) History of inflammatory bowel disease Medical patient at bed rest Age 61-74 Arthroscopic surgery Major open surgery (> 45 min) Laparoscopic surgery (> 45 min) Malignancy Confined to bed (> 72 hours) Immobilizing plaster cast Central venous access Age >= 75 History of VTE Family history of VTE Factor V Leiden Prothrombin [id number] Lupus anticoagulant Anticardiolipin antibodies Elevated serum homocysteine Heparin-induced thrombocytopenia Other congenital or acquired thrombophilia Stroke (< 1 month) Elective arthroplasty Hip, pelvis, or leg fracture Acute spinal cord injury (< 1 month) Prophylaxis Regimen: Total Risk Factor Score Risk Level Prophylaxis Regimen 0-1 Low Early ambulation 2 Moderate Order ONE of the following: *Sequential Compression Device (SCD) *Heparin 5000 units SQ BID 3-4 Higher Order ONE of the following medications: *Heparin 5000 units SQ TID *Enoxaparin/Lovenox 40 mg SQ daily (WT < 150 kg, CrCl > 30 mL/min) *Enoxaparin/Lovenox 30 mg SQ daily (WT < 150 kg, CrCl > 10-29 mL/min) *Enoxaparin/Lovenox 30 mg SQ BID (WT < 150 kg, CrCl > 30 mL/min) AND/OR *Sequential Compression Device (SCD) 5 or more Highest Order ONE of the following medications: *Heparin 5000 units SQ TID (Preferred with Epidurals) *Enoxaparin/Lovenox 40 mg SQ daily (WT < 150 kg, CrCl > 30 mL/min) *Enoxaparin/Lovenox 30 mg SQ daily (WT < 150 kg, CrCl > 10-29 mL/min) *Enoxaparin/Lovenox 30 mg SQ BID (WT < 150 kg, CrCl > 30 mL/min) AND *Sequential Compression Device (SCD) Assessment and Plan - Assessment (1) Neurocognitive disorder Code(s): R41.9 - Unspecified symptoms and signs involving cognitive functions and awareness Status: Acute Plan: Per chart review pt has a hx of dementia, schizophrenia, and Wernicke-Korsakoff syndrome. This likely contributes to his sx of confusion and reason for admission to the hospital from [facility]. Will consider normal pressure hydrocephalus (incontinence, multiple falls, and impaired cognition) vs dementia vs schizophrenia Head CT on admission: 1. Moderate severity central cortical atrophy. 2. No acute findings in the brain. UA: negative UDS: negative -Per psychiatry's note pt does not have capacity to make his own medical decisions -Case management consulted to arrange placement -PT/OT consulted -ST consulted for cognitive evaluation and swallow evaluation -If any worsening of sx will consult neurology (2) Schizophrenia Code(s): F20.9 - Schizophrenia, unspecified Status: Acute Plan: Patient with a history of schizophrenia. Was under psychiatric admission at [facility]. -Wolf act lifted by Psychiatry, Dr. Cortes -The patient is poorly communicative, with marked incoherent speech, just oriented in person, with significant impairment in immediate recall, abstraction , executive function. Patient's mental status seems to be consistent with chronic schizophrenia with neurocognitive impairment. He does not meet criteria for involuntary psychiatric admission. The patient does not have capacity to take medical decisions at the moment. -Continue at home medications of Keppra 500 mg po twice daily and Seroquel XR 150 mg p.o. daily -Keppra level pending (3) Alcohol abuse Code(s): F10.10 - Alcohol abuse, uncomplicated Status: Acute Plan: Patient admits to a long history of alcohol abuse. He states that his last drink was a few days ago -Initiate CIWA protocol as a precaution -Escalate care as necessary (4) Nutrition, metabolism, and development symptoms Code(s): R63.8 - Other symptoms and signs concerning food and fluid intake Status: Acute Plan: Fluids: tolerating PO Electrolytes: monitor and replete as needed Nutrition: heart-healthy diet GI Prophylaxis: Not indicated at this time (5) DVT prophylaxis Status: Acute Plan: Will hold off on DVT pharmacological prophylaxis due to patient's multiple falls and low platelets -Bilateral SCDs - Plan 62-year-old white male with a past medical history of alcohol abuse and schizophrenia presenting to the ED under Wolf act. Admitted for social placement due to unsafe discharge. Discussed Condition With: Dr. Azul and Dr. Cardoso Discharge Planning: Case management consulted. [facility] states that patient is to return to them. <Maria Dolores Cardoso - Last Filed: 02/18/18 11:12> History of Present Illness Primary Care Physician: No Primary Care Physician - Diagnosis (1) Neurocognitive disorder (2) Schizophrenia (3) Alcohol abuse (4) Nutrition, metabolism, and development symptoms (5) DVT prophylaxis - Inpatient Certification If this patient has been admitted as an Inpatient: I certify that the inpatient services were ordered in accordance with Medicare regulations governing the order. This includes certification that hospital inpatient services are reasonable and necessary and in the case of services not specified as inpatient-only under 42 CFR 419.22(n), that they are appropriately provided as inpatient services in accordance to with the 2-midnight benchmark under 43 CFR 412.3(e) [facility] - Medical History Medical History: Medical History (Last Updated 02/17/18 @ 10:33 by Aide Sanchez MD, R1) Hypertension (Acute) Alcohol abuse (Acute) CAD (coronary artery disease) Dementia Depression History of traumatic brain injury Hyperlipidemia Seizure disorder - Surgical History Surgical History: Surgical History (Last Reviewed 02/17/18 @ 13:51 by Theresa Nielson RN) History of appendectomy History of tonsillectomy Medications and Allergies Active Medications: Active Medications Acetaminophen (Tylenol) 650 mg PO Q4H PRN PRN Reason: Temp > 100.4 Flumazenil (Romazecon Inj) 0.2 mg IV.PUSH Q1M PRN PRN Reason: OVERSEDATION Haloperidol Lactate (Haldol Inj) 1 mg IV.PUSH Q15M PRN PRN Reason: for severe agitation Levetiracetam (Keppra) 500 mg PO BID [facility] Last Admin: 02/18/18 10:34 Dose: 500 mg Lorazepam (Ativan) 1 mg PO Q4H PRN PRN Reason: for CIWA 8-10 Last Admin: 02/17/18 20:48 Dose: 1 mg Lorazepam (Ativan) 2 mg PO Q2H PRN PRN Reason: for CIWA 11-14 Lorazepam (Ativan Inj) 2 mg IV.PUSH Q2H PRN PRN Reason: for CIWA 11-14 Lorazepam (Ativan Inj) 2 mg IV.PUSH Q1H PRN PRN Reason: for CIWA 15-20 Lorazepam (Ativan Inj) 2 mg IV.PUSH Q15M PRN PRN Reason: for CIWA > 20 Lorazepam (Ativan Inj) 1 mg IV.PUSH Q4H PRN PRN Reason: for CIWA 8-10 Quetiapine Fumarate (Seroquel) 75 mg PO BID [facility] Last Admin: 02/18/18 10:33 Dose: 75 mg Senna/Docusate Sodium (Alina-Colace) 1 tab PO BID [facility] Last Admin: 02/18/18 10:34 Dose: 1 tab Sertraline HCl (Zoloft) 50 mg PO DAILY [facility] Last Admin: 02/18/18 10:34 Dose: 50 mg Exam Vital signs: Vital Signs 02/17/18 12:00 02/17/18 16:00 02/17/18 21:14 Temperature 97.7 F 98.7 F 98.4 F Pulse Rate 66 69 65 Respiratory Rate 18 18 18 Blood Pressure 143/80 H 142/97 H 150/73 H Pulse Oximetry 98 96 100 02/18/18 00:00 02/18/18 04:00 02/18/18 08:00 Temperature 97.6 F 98.7 F Pulse Rate 61 50 L 70 Respiratory Rate 18 17 18 Blood Pressure 145/76 H 128/60 135/71 Pulse Oximetry 99 99 96 Intake & Output 02/17/18 02/18/18 02/18/18 18:59 06:59 18:59 Weight 100 kg Other: # Voids 3 5 # Urine Diapers 1 Date of Last Bowel Movement 02/15/18 Weight On Admission 100 kg Results - Labs Result diagrams: 02/18/18 06:12 02/18/18 06:10 Abnormal lab results 02/18/18 02/18/18 Range/Units 06:10 06:12 WBC 3.0 L (4.0-11.0) th/mm3 RBC 3.85 L (4.50-5.90) mil/mm3 Hgb 11.9 L (13.0-17.0) gm/dL Hct 35.1 L (39.0-51.0) % Plt Count 51 L (150-450) th/mm3 Chloride 111 H (98-107) meq/L Estimated GFR 86 L (>89) mL/min Calcium 8.3 L (8.5-10.1) mg/dL Total Protein 6.2 L D (6.4-8.2) g/dL Albumin 3.1 L (3.4-5.0) g/dL Short CBC 02/18/18 Range/Units 06:12 WBC 3.0 L (4.0-11.0) th/mm3 Hgb 11.9 L (13.0-17.0) gm/dL Hct 35.1 L (39.0-51.0) % Plt Count 51 L (150-450) th/mm3 BMP 02/18/18 06:10 Sodium 143 Potassium 3.8 Chloride 111 H Carbon Dioxide 22.3 BUN 14 Creatinine 0.90 Calcium 8.3 L Liver Function 02/18/18 Range/Units 06:10 Total Bilirubin 0.5 (0.2-1.0) mg/dL AST 35 (15-37) U/L ALT 34 (12-78) U/L Alkaline Phosphatase 71 (45-117) U/L Albumin 3.1 L (3.4-5.0) g/dL - Imaging Impressions Chest X-Ray 02/17/18 00:00 CONCLUSION: No acute intrathoracic disease. Caprini VTE Risk Assessment Caprini Risk Assessment Model: Point Value = 1 Point Value = 2 Point Value = 3 Point Value = 5 Age 41-60 Minor surgery BMI > 25 kg/m2 Swollen legs Varicose veins or History of unexplained or recurrent spontaneous Oral contraceptives or hormone replacement Sepsis (< 1 month) Serious lung disease, including pneumonia (< 1 month) Abnormal pulmonary function Acute myocardial infarction Congestive heart failure (< 1 month) History of inflammatory bowel disease Medical patient at bed rest Age 61-74 Arthroscopic surgery Major open surgery (> 45 min) Laparoscopic surgery (> 45 min) Malignancy Confined to bed (> 72 hours) Immobilizing plaster cast Central venous access Age >= 75 History of VTE Family history of VTE Factor V Leiden Prothrombin [id number] Lupus anticoagulant Anticardiolipin antibodies Elevated serum homocysteine Heparin-induced thrombocytopenia Other congenital or acquired thrombophilia Stroke (< 1 month) Elective arthroplasty Hip, pelvis, or leg fracture Acute spinal cord injury (< 1 month) Prophylaxis Regimen: Total Risk Factor Score Risk Level Prophylaxis Regimen 0-1 Low Early ambulation 2 Moderate Order ONE of the following: *Sequential Compression Device (SCD) *Heparin 5000 units SQ BID 3-4 Higher Order ONE of the following medications: *Heparin 5000 units SQ TID *Enoxaparin/Lovenox 40 mg SQ daily (WT < 150 kg, CrCl > 30 mL/min) *Enoxaparin/Lovenox 30 mg SQ daily (WT < 150 kg, CrCl > 10-29 mL/min) *Enoxaparin/Lovenox 30 mg SQ BID (WT < 150 kg, CrCl > 30 mL/min) AND/OR *Sequential Compression Device (SCD) 5 or more Highest Order ONE of the following medications: *Heparin 5000 units SQ TID (Preferred with Epidurals) *Enoxaparin/Lovenox 40 mg SQ daily (WT < 150 kg, CrCl > 30 mL/min) *Enoxaparin/Lovenox 30 mg SQ daily (WT < 150 kg, CrCl > 10-29 mL/min) *Enoxaparin/Lovenox 30 mg SQ BID (WT < 150 kg, CrCl > 30 mL/min) AND *Sequential Compression Device (SCD) Assessment and Plan - Assessment (1) Neurocognitive disorder Code(s): R41.9 - Unspecified symptoms and signs involving cognitive functions and awareness Status: Acute (2) Schizophrenia Code(s): F20.9 - Schizophrenia, unspecified Status: Acute (3) Alcohol abuse Code(s): F10.10 - Alcohol abuse, uncomplicated Status: Acute (4) Nutrition, metabolism, and development symptoms Code(s): R63.8 - Other symptoms and signs concerning food and fluid intake Status: Acute (5) DVT prophylaxis Status: Acute - Attending Attestation The exam, history, and the medical decision-making described in the above note were completed with the assistance of the resident physician. I reviewed and agree with the findings presented. I attest that I had a [id number] encounter with the patient on the same day, and personally performed and documented my assessment and findings in the medical record. This is late entry due to issues with [facility] in the new system. Patient was seen and examined with the resident team during this admission and this note reflects my exam and assessment and plan. This appears to be chronic and suspect he has longstanding dementia likely secondary to ETOH. Will need to try to find out more information from [facility] and also attempt to contact next of kin. It is a little unclear of his legal status at this time and whether or not he is a prisoner? Will attempt to find out more information. Maria Dolores Cardoso MD
[2018-02-17] MEDS ORDERED: Acetaminophen 325 MG Tablet PO PRN (10:59)
[2018-02-17] MEDS ORDERED: Haloperidol Inj 5 MG/ML Ampul IV.PUSH PRN (10:59)
[2018-02-17] MEDS ORDERED: LORazepam 1 MG Tablet PO PRN (10:59)
--- NOTE | 2018-02-17 11:39 | XR ---
EXAM DATE: 02/17/2018 11:36 AM EDT AGE/SEX: 62 years / Male INDICATIONS: Cough. CLINICAL DATA: This is the patient's initial encounter. Patient reports that signs and symptoms have been present for 3 days and indicates a pain score of 0/10. MEDICAL/SURGICAL HISTORY: Hypertension. Cardiovascular disease. Seizures. Dementia. Appendect aristides. COMPARISON: No prior exams available for comparison. FINDINGS: A single AP view of the chest demonstrates the lungs to be symmetrically aerated without evidence of mass, infiltrate or effusion. The cardiomediastinal contours are unremarkable. Osseous structures a re intact. CONCLUSION: No acute intrathoracic disease. Electronically signed by: Augie Murrell MD 02/17/2018 11:38 AM EDT
[2018-02-17 12:32] LABS: Amphetamine Screen,Urine Neg (Neg); Barbiturate Screen,Urine Neg (Neg); Cannabinoid Screen,Urine Neg (Neg); Cocaine Screen,Urine Neg (Neg); Opiate Screen,Urine Neg (Neg)
[2018-02-17] MEDS: levETIRAcetam 500 MG Tablet PO SCH ×2 (13:23→20:48)
[2018-02-17] MEDS: Sertraline 50 MG Tablet PO SCH (13:23)
--- NOTE | 2018-02-17 13:43 | P.CONPSY ---
Provisional Diagnosis Admission Date: February 17, 2018 10:18 [place].: Schizophrenia, major neurocognitive disorder History of Present Illness Service: ER Primary Care Provider: No Primary Care Physician Family Provider: No Primary Care Physician History of Present Illness: The patient is a 62 year old man, domiciled, per family and social support, with a long history of psychiatric problems, diagnosis of schizophrenia , major neurocognitive impairment, previous psychiatric hospitalizations, who presents to the [facility] emergency department with a history of arriving by ambulance services from the [facility] with a report of difficulty performing his activities of daily living. Patient is on the ex parte. The patient himself denies any acute complaints. The patient does have slightly slurred speech. He reports that he had some abdominal pain earlier today, however he reports having no abdominal pain today. There was also a report from ambulance services that the patient had incontinence of urine. He denies having any dysuria, urinary frequency, or urinary urgency. On review of systems otherwise, the patient denies having any known recent fevers, cough or congestion, neck pain, chest pain, shortness of breath, vomiting, diarrhea, one- sided weakness, facial droop, difficulty with word finding ability, numbness or tingling to his extremities, or vision change. On my psychiatric evaluation I find a patient that is sleeping, but easily arousable. The patient reports feeling okay, he denies distress, pain, denies mood symptoms. Medication with the patient is quite limited due to slurred speech and cognitive impairment. The patient denies being depressed, he denies suicidal enemas ideation, he denies visual and auditory hallucinations. The patient is oriented in person. Disoriented in time and place. He is able to tell me that he is from [place], but he does not know where he is at this moment. He does not know who is the chaser helper. He does not know what is the reason he is in the hospital. There is no agitation, no aggressive behavior, no increased paranoia or delusions present PMFSH - History History Provided By: Patient - Medical History Medical History: Medical History (Last Updated 02/17/18 @ 10:33 by Aide Sanchze MD, R1) Hypertension (Acute) Alcohol abuse (Acute) CAD (coronary artery disease) Dementia Depression History of traumatic brain injury Hyperlipidemia Seizure disorder - Surgical History Surgical History: Surgical History (Last Updated 02/16/18 @ 21:06 by Yissel Kenny MD) History of appendectomy History of tonsillectomy - Tobacco History Second Hand Smoke Exposure: Yes Tobacco Use In Past 30 Days: Yes Smoking Status: Heavy tobacco smoker Tobacco Type: Cigarettes - Alcohol History How Often Do You Have a Drink Containing Alcohol: 4 or more times a week - Substance Use History Substance History: No History of Abuse - Travel History Recent Travel in the [place] Within the Last 8 Weeks: No Recent Travel Out of the Country Within the Last 8 Weeks: No - Immunization History Tetanus Immunization: Unsure Hx Influenza Vaccine This Season: Unable to Assess Medications and Allergies Active Medications: Active Medications Acetaminophen (Tylenol) 650 mg PO Q4H PRN PRN Reason: Temp > 100.4 Flumazenil (Romazecon Inj) 0.2 mg IV.PUSH Q1M PRN PRN Reason: OVERSEDATION Haloperidol Lactate (Haldol Inj) 1 mg IV.PUSH Q15M PRN PRN Reason: for severe agitation Levetiracetam (Keppra) 500 mg PO BID [facility] Last Admin: 02/17/18 13:23 Dose: 500 mg Lorazepam (Ativan) 1 mg PO Q4H PRN PRN Reason: for CIWA 8-10 Lorazepam (Ativan) 2 mg PO Q2H PRN PRN Reason: for CIWA 11-14 Lorazepam (Ativan Inj) 2 mg IV.PUSH Q2H PRN PRN Reason: for CIWA 11-14 Lorazepam (Ativan Inj) 2 mg IV.PUSH Q1H PRN PRN Reason: for CIWA 15-20 Lorazepam (Ativan Inj) 2 mg IV.PUSH Q15M PRN PRN Reason: for CIWA > 20 Lorazepam (Ativan Inj) 1 mg IV.PUSH Q4H PRN PRN Reason: for CIWA 8-10 Quetiapine Fumarate (Seroquel) 75 mg PO BID [facility] Senna/Docusate Sodium (Alina-Colace) 1 tab PO BID [facility] Sertraline HCl (Zoloft) 50 mg PO DAILY [facility] Last Admin: 02/17/18 13:23 Dose: 50 mg Allergies Allergy/AdvReac Type Severity Reaction Status Date / Time codeine Allergy Severe Itching Verified 02/16/18 21:33 penicillin G Allergy Severe Hallucinati Verified 02/16/18 21:33 ons Home Medications Medication Instructions Recorded Confirmed Type levetiracetam [Keppra] 500 mg BID 02/16/18 02/16/18 History quetiapine [Seroquel XR] 150 mg PO DAILY 02/16/18 02/16/18 History sertraline 50 mg PO DAILY 02/16/18 02/16/18 History Exam Vital signs: Vital Signs 02/16/18 20:46 02/16/18 23:02 02/17/18 03:35 Temperature 97.8 F Pulse Rate 57 L 70 66 Respiratory Rate 16 16 16 Blood Pressure 141/70 H 145/70 H 130/70 Pulse Oximetry 99 98 97 02/17/18 07:00 02/17/18 11:00 02/17/18 12:00 Temperature 97.7 F Pulse Rate 54 L 57 L 66 Respiratory Rate 16 14 18 Blood Pressure 131/71 135/75 143/80 H Pulse Oximetry 99 98 Intake & Output 02/16/18 02/17/18 02/17/18 18:59 06:59 18:59 Weight 100 kg Other: Weight On Admission 100 kg Mental Status Examination Appearance: Appropriate Consciousness: Alert Orientation: Person Speech: Incoherent, Other Language: Adequate Fund of Knowledge: Poor Attention and Concentration: Easily distracted Memory: Impaired Mood: Appropriate Affect: Appropriate Thought Process & Associations: Disorganized Thought Content: Thought blocking Hallucination Type: None Delusion Type: None Suicidal Ideation: No Suicidal Plan: No Suicidal Intention: No Homicidal Ideation: No Homicidal Plan: No Homicidal Intention: No Insight: Fair Judgment: Impulsive Assessment and Plan - Assessment (1) Schizophrenia Code(s): F20.9 - Schizophrenia, unspecified Status: Acute - Plan Plan: Estimated LOS: [] days On psychiatric evaluation today the patient is poorly communicative, with marked incoherent speech, just oriented in person, with significant impairment in immediate recall, abstraction, executive function. Patient's mental status seems to be consistent with chronic schizophrenia with neurocognitive impairment. He does not meet criteria for involuntary psychiatric admission. The patient does not have capacity to take medical decisions at the moment. Patient might benefit of a low dose of antipsychotic, 25 mg twice daily, Namenda 10 mg, Aricept 10 mg. Wolf act will be lifted Justification for Continued Inpatient Stay: Patient does not meet criteria for involuntary psychiatric admission. Wolf act will be lifted
[2018-02-17] MEDS: Senna/Docusate Sodium 8.6/50 MG Tablet PO SCH (20:48)
[2018-02-17] MEDS ORDERED: QUEtiapine 25 MG Tablet PO SCH (22:59)
[2018-02-17] MEDS: QUEtiapine 25 MG Tablet PO SCH (23:59)
[2018-02-18 07:06] LABS: Albumin 3.1 g/dL (3.4-5.0); Anion Gap 10 meq/L (5-15); Aspartate Aminotransferase 35 U/L (15-37); Blood Urea Nitrogen 14 mg/dL (7-18); Calcium 8.3 mg/dL (8.5-10.1); Carbon Dioxide 22.3 meq/L (21.0-32.0); Chloride 111 meq/L (98-107); Glomerular Filtration Rate 86 mL/min (>89); Glucose,Random 74 mg/dL (74-106); Potassium 3.8 meq/L (3.5-5.1); Sodium 143 meq/L (136-145)
[2018-02-18 07:12] LABS: Alanine Aminotransferase 34 U/L (12-78); Alkaline Phosphatase 71 U/L (45-117); Total Protein 6.2 g/dL (6.4-8.2)
[2018-02-18 07:12] LABS: Hematocrit 35.1 % (39.0-51.0); Hemoglobin 11.9 gm/dL (13.0-17.0); Mean Corpuscular Hemoglobin 30.9 pg (27.0-34.0); Mean Platelet Volume 8.8 fL (7.0-11.0); Platelet Count 51 th/mm3 (150-450); Red Blood Count 3.85 mil/mm3 (4.50-5.90); Red Cell Distribution Width 13.9 % (11.6-17.2)
[2018-02-18] MEDS ORDERED: QUEtiapine 25 MG Tablet PO SCH (09:00)
[2018-02-18] MEDS: QUEtiapine 25 MG Tablet PO SCH ×2 (10:33→20:34)
[2018-02-18] MEDS: Sertraline 50 MG Tablet PO SCH (10:34)
[2018-02-18] MEDS: Senna/Docusate Sodium 8.6/50 MG Tablet PO SCH ×2 (10:34→20:34)
[2018-02-18] MEDS: levETIRAcetam 500 MG Tablet PO SCH ×2 (10:34→20:34)
--- NOTE | 2018-02-18 12:22 | P.PNFP ---
Subjective Interval history: Patient seen and examined this morning. He states that he is doing okay. He does have a headache at the top of his head. He seemed to be unable to elaborate further, seeming to not understand our questions. No fever/ chills, no chest pain, shortness of breath. <LauraAide G - 02/18/18 16:54> Results - Labs Result diagrams: 02/19/18 04:25 02/19/18 04:25 <Maria Dolores Morin R - 02/19/18 10:40> Abnormal lab results 02/19/18 02/19/18 Range/Units 04:25 04:25 WBC 2.8 L (4.0-11.0) th/mm3 RBC 3.99 L (4.50-5.90) mil/mm3 Hgb 12.3 L (13.0-17.0) gm/dL Hct 36.3 L (39.0-51.0) % Plt Count 50 L (150-450) th/mm3 Chloride 110 H (98-107) meq/L Estimated GFR 86 L (>89) mL/min Random Glucose 70 L (74-106) mg/dL Short CBC 02/19/18 Range/Units 04:25 WBC 2.8 L (4.0-11.0) th/mm3 Hgb 12.3 L (13.0-17.0) gm/dL Hct 36.3 L (39.0-51.0) % Plt Count 50 L (150-450) th/mm3 BMP 02/19/18 04:25 Sodium 143 Potassium 4.0 Chloride 110 H Carbon Dioxide 23.3 BUN 15 Creatinine 0.90 Calcium 8.6 <Maria Dolores Morin R - 02/19/18 10:40> Abnormal lab results 02/18/18 02/18/18 Range/Units 06:10 06:12 WBC 3.0 L (4.0-11.0) th/mm3 RBC 3.85 L (4.50-5.90) mil/mm3 Hgb 11.9 L (13.0-17.0) gm/dL Hct 35.1 L (39.0-51.0) % Plt Count 51 L (150-450) th/mm3 Chloride 111 H (98-107) meq/L Estimated GFR 86 L (>89) mL/min Calcium 8.3 L (8.5-10.1) mg/dL Total Protein 6.2 L D (6.4-8.2) g/dL Albumin 3.1 L (3.4-5.0) g/dL Short CBC 02/18/18 Range/Units 06:12 WBC 3.0 L (4.0-11.0) th/mm3 Hgb 11.9 L (13.0-17.0) gm/dL Hct 35.1 L (39.0-51.0) % Plt Count 51 L (150-450) th/mm3 BMP 02/18/18 06:10 Sodium 143 Potassium 3.8 Chloride 111 H Carbon Dioxide 22.3 BUN 14 Creatinine 0.90 Calcium 8.3 L Liver Function 02/18/18 Range/Units 06:10 Total Bilirubin 0.5 (0.2-1.0) mg/dL AST 35 (15-37) U/L ALT 34 (12-78) U/L Alkaline Phosphatase 71 (45-117) U/L Albumin 3.1 L (3.4-5.0) g/dL <Aide Sanchez - 02/18/18 12:22> - Imaging Impressions Chest X-Ray 02/17/18 00:00 CONCLUSION: No acute intrathoracic disease. <Aide Sanchez - 02/18/18 12:22> Physical Exam Vital signs: Vital Signs 02/18/18 12:00 02/18/18 16:00 02/18/18 19:42 Temperature 97.8 F 98.0 F 97.5 F L Pulse Rate 68 68 76 Respiratory Rate 18 18 20 Blood Pressure 131/76 194/92 H 146/66 H Pulse Oximetry 99 99 98 02/18/18 23:15 02/19/18 00:00 02/19/18 08:00 Temperature 98.3 F 98.0 F Pulse Rate 86 50 L 50 L Respiratory Rate 16 18 Blood Pressure 116/66 117/76 Pulse Oximetry 94 L 98 Intake & Output 02/18/18 02/19/18 02/19/18 18:59 06:59 18:59 Other: # Voids 2 Date of Last Bowel Movement 02/18/18 <Maria Dolores Morin - 02/19/18 10:40> Vital Signs 02/17/18 16:00 02/17/18 21:14 02/18/18 00:00 Temperature 98.7 F 98.4 F Pulse Rate 69 65 61 Respiratory Rate 18 18 18 Blood Pressure 142/97 H 150/73 H 145/76 H Pulse Oximetry 96 100 99 02/18/18 04:00 02/18/18 08:00 Temperature 97.6 F 98.7 F Pulse Rate 50 L 70 Respiratory Rate 17 18 Blood Pressure 128/60 135/71 Pulse Oximetry 99 96 Intake & Output 02/17/18 02/18/18 02/18/18 18:59 06:59 18:59 Weight 100 kg Other: # Voids 3 5 # Urine Diapers 1 Date of Last Bowel Movement 02/15/18 Weight On Admission 100 kg <Aide Sanchez - 02/18/18 12:22> Narrative: GENERAL: elderly male in sitting up in bed eating breakfast, in no acute distress SKIN: Warm and dry. HEAD: Atraumatic. Normocephalic. EYES: No scleral icterus. No injection or drainage. ENT: No nasal bleeding or discharge. Mucous membranes pink and moist. Edentulous NECK: Trachea midline. No JVD. CARDIOVASCULAR: Regular rate and rhythm. RESPIRATORY: No accessory muscle use. Diffuse end expiratory wheezing. Breath sounds equal bilaterally. GASTROINTESTINAL: Abdomen obese, soft, non-tender, nondistended. MUSCULOSKELETAL: Extremities without clubbing, cyanosis, or edema. No obvious deformities. NEUROLOGICAL: Awake and alert. No obvious cranial nerve deficits. Motor grossly within normal limits. Slurred speech. Oriented only to self. <Aide Sanchez - 02/18/18 16:54> - Urinary Catheter Management Indwelling Urethral Catheter Cath placed during this visit: no <Maria Dolores Morin - 02/19/18 10:40> yes, but has since been removed by the nurse <Aide Sanchez - 02/18/18 16:54> Reason for continuing: Not indwelling catheter <Aide Sanchez - 02/18/18 12:22> Removal date: 02/16/18 <Aide Sanchez - 02/18/18 12:22> Removal time: 23:01 <Aide Sanchez - 02/18/18 12:22> Assessment and Plan - Assessment (1) Neurocognitive disorder Code(s): R41.9 - Unspecified symptoms and signs involving cognitive functions and awareness Status: Acute (2) Schizophrenia Code(s): F20.9 - Schizophrenia, unspecified Status: Acute (3) Alcohol abuse Code(s): F10.10 - Alcohol abuse, uncomplicated Status: Chronic (4) Nutrition, metabolism, and development symptoms Code(s): R63.8 - Other symptoms and signs concerning food and fluid intake Status: Acute (5) DVT prophylaxis Status: Acute <Maria Dolores Morin R - 02/19/18 10:40> (1) Neurocognitive disorder Code(s): R41.9 - Unspecified symptoms and signs involving cognitive functions and awareness Status: Acute Plan: Per chart review pt has a hx of dementia, schizophrenia, and Wernicke-Korsakoff syndrome. This likely contributes to his sx of confusion and reason for admission to the hospital from [facility]. Will consider normal pressure hydrocephalus (incontinence, multiple falls, and impaired cognition) vs dementia vs schizophrenia Head CT on admission: 1. Moderate severity central cortical atrophy. 2. No acute findings in the brain. UA: negative UDS: negative -Per psychiatry's note pt does not have capacity to make his own medical decisions -Case management consulted to arrange placement -PT/OT consulted -PT recommends rehab -OT states that patient requires supervision at home for safety -ST consulted for cognitive evaluation and swallow evaluation -MOCA score 3/30 -Dependent, total help required -Signed off on 02/18 due to the fact that patient's severe cognitive impairments are not of new onset -If any worsening of sx will consult neurology (2) Schizophrenia Code(s): F20.9 - Schizophrenia, unspecified Status: Acute Plan: Patient with a history of schizophrenia. Was under psychiatric admission at [facility]. -Wolf act lifted by Psychiatry, Dr. Cortes -The patient is poorly communicative, with marked incoherent speech, just oriented in person, with significant impairment in immediate recall, abstraction , executive function. Patient's mental status seems to be consistent with chronic schizophrenia with neurocognitive impairment. He does not meet criteria for involuntary psychiatric admission. The patient does not have capacity to take medical decisions at the moment. -Continue at home medications of Keppra 500 mg po twice daily and Seroquel XR 150 mg p.o. daily -Keppra level pending (3) Alcohol abuse Code(s): F10.10 - Alcohol abuse, uncomplicated Status: Chronic Plan: Patient admits to a long history of alcohol abuse. He states that his last drink was a few days ago -Initiate CIWA protocol as a precaution -Escalate care as necessary (4) Nutrition, metabolism, and development symptoms Code(s): R63.8 - Other symptoms and signs concerning food and fluid intake Status: Acute Plan: Fluids: tolerating PO Electrolytes: monitor and replete as needed Nutrition: heart-healthy diet GI Prophylaxis: Not indicated at this time (5) DVT prophylaxis Status: Acute Plan: Will hold off on DVT pharmacological prophylaxis due to patient's multiple falls and low platelets -Bilateral SCDs <Aide Sanchez - 02/18/18 16:42> - Assessment and Plan 62-year-old white male with a past medical history of alcohol abuse and schizophrenia presenting to the ED under Wolf act. Admitted for social placement due to unsafe discharge. <Aide Sanchez 02/18/18 12:22> Discussed Condition With: Dr. Morin <Aide Sanchez 02/18/18 16:54> Discharge Planning: Case management consulted for placement back to [facility]. <Aide Sanchez 02/18/18 16:54> - Attending Attestation The exam, history, and the medical decision-making described in the above note were completed with the assistance of the resident physician. I reviewed and agree with the findings presented. I attest that I had a [id number] encounter with the patient on the same day, and personally performed and documented my assessment and findings in the medical record. <Maria Dolores Morin - 02/19/18 10:40>
[2018-02-19 05:12] LABS: Hematocrit 36.3 % (39.0-51.0); Hemoglobin 12.3 gm/dL (13.0-17.0); Mean Corpuscular Hemoglobin 30.9 pg (27.0-34.0); Mean Corpuscular Volume 90.9 fL (80.0-100.0); Mean Platelet Volume 8.4 fL (7.0-11.0); Platelet Count 50 th/mm3 (150-450); Red Blood Count 3.99 mil/mm3 (4.50-5.90); Red Cell Distribution Width 13.9 % (11.6-17.2); White Blood Count 2.8 th/mm3 (4.0-11.0)
[2018-02-19 05:45] LABS: Calcium 8.6 mg/dL (8.5-10.1); Carbon Dioxide 23.3 meq/L (21.0-32.0)
[2018-02-19] MEDS: Sertraline 50 MG Tablet PO SCH (10:36)
[2018-02-19] MEDS: Senna/Docusate Sodium 8.6/50 MG Tablet PO SCH ×2 (10:36→20:39)
[2018-02-19] MEDS: QUEtiapine 25 MG Tablet PO SCH ×2 (10:36→20:38)
[2018-02-19] MEDS: levETIRAcetam 500 MG Tablet PO SCH ×2 (10:36→20:39)
--- NOTE | 2018-02-19 15:28 | P.PNFP ---
Subjective Interval history: Patient seen and examined this afternoon. He states that he does not feel so well. He was having some chest pain in the center of his chest , sharp, nonradiating. It has now resolved. He feels the pain when he is laying down. No associated shortness of breath. no hx of GERD. He states that he has never had an [place]. no fever/chills, he is urinating and stooling without difficulty. No incontinence and able to get up to walk to the bathroom by himself. <iAde Sanhcez G - 02/19/18 15:28> Results - Labs Result diagrams: 02/20/18 05:35 02/20/18 05:35 <Maria Dolores Morin R - 02/20/18 07:50> Abnormal lab results 02/20/18 02/20/18 02/20/18 Range/Units 05:35 05:35 05:35 WBC 3.3 L (4.0-11.0) th/mm3 RBC 4.03 L (4.50-5.90) mil/mm3 Hgb 12.3 L (13.0-17.0) gm/dL Hct 36.4 L (39.0-51.0) % Plt Count 58 L (150-450) th/mm3 Chloride 110 H (98-107) meq/L Estimated GFR 86 L (>89) mL/min Random Glucose 73 L (74-106) mg/dL Calcium 8.4 L (8.5-10.1) mg/dL Troponin I Less than 0.02 L (0.02-0.05) ng/mL Short CBC 02/20/18 Range/Units 05:35 WBC 3.3 L (4.0-11.0) th/mm3 Hgb 12.3 L (13.0-17.0) gm/dL Hct 36.4 L (39.0-51.0) % Plt Count 58 L (150-450) th/mm3 BMP 02/20/18 05:35 Sodium 145 Potassium 3.8 Chloride 110 H Carbon Dioxide 26.9 BUN 16 Creatinine 0.90 Calcium 8.4 L Cardiac Enzymes 02/20/18 Range/Units 05:35 Total Creatine Kinase 249 (39-308) U/L CK-MB (CK-2) 3.6 (0.5-3.6) ng/mL Troponin I Less than 0.02 L (0.02-0.05) ng/mL <Maria Dolores Morin - 02/20/18 07:50> Abnormal lab results 02/19/18 02/19/18 Range/Units 04:25 04:25 WBC 2.8 L (4.0-11.0) th/mm3 RBC 3.99 L (4.50-5.90) mil/mm3 Hgb 12.3 L (13.0-17.0) gm/dL Hct 36.3 L (39.0-51.0) % Plt Count 50 L (150-450) th/mm3 Chloride 110 H (98-107) meq/L Estimated GFR 86 L (>89) mL/min Random Glucose 70 L (74-106) mg/dL Short CBC 02/19/18 Range/Units 04:25 WBC 2.8 L (4.0-11.0) th/mm3 Hgb 12.3 L (13.0-17.0) gm/dL Hct 36.3 L (39.0-51.0) % Plt Count 50 L (150-450) th/mm3 BMP 02/19/18 04:25 Sodium 143 Potassium 4.0 Chloride 110 H Carbon Dioxide 23.3 BUN 15 Creatinine 0.90 Calcium 8.6 <Aide Sanchez - 02/19/18 15:28> - Imaging ITS Impressions Abdomen/Pelvis CT 02/17/18 00:00 CONCLUSION: 1. No acute findings. 2. Calcified gallstones. Chest X-Ray 02/17/18 00:00 CONCLUSION: No acute intrathoracic disease. Head CT 02/17/18 00:00 CONCLUSION: 1. Moderate severity central cortical atrophy. 2. No acute findings in the brain. <Aide Sanchez - 02/19/18 15:28> Physical Exam Vital signs: Vital Signs 02/19/18 08:00 02/19/18 09:00 02/19/18 12:00 Temperature 98.0 F 97.7 F Pulse Rate 50 L 50 L 73 Respiratory Rate 18 18 Blood Pressure 117/76 105/69 Pulse Oximetry 98 97 02/19/18 16:00 02/19/18 19:53 02/19/18 23:42 Temperature 98.0 F 97.8 F 98.2 F Pulse Rate 69 73 58 L Respiratory Rate 12 18 18 Blood Pressure 106/69 139/77 113/56 L Pulse Oximetry 96 96 95 02/20/18 00:00 02/20/18 03:10 02/20/18 03:17 Temperature 98.0 F 98.0 F Pulse Rate 60 62 65 Respiratory Rate 18 18 Blood Pressure 126/74 126/74 Pulse Oximetry 95 95 02/20/18 04:00 Temperature Pulse Rate 67 Respiratory Rate Blood Pressure Pulse Oximetry Intake & Output 02/19/18 02/20/18 02/20/18 18:59 06:59 18:59 Intake Total 1720 / 1720 Balance 1720 / 1720 Intake: IV 1000 / 1000 Oral 720 / 720 Other: # Voids 5 5 Date of Last Bowel Movement 02/19/18 02/20/18 # Bowel Movements 1 <Maria Dolores Morin R - 02/20/18 07:50> Vital Signs 02/18/18 16:00 02/18/18 19:42 02/18/18 23:15 Temperature 98.0 F 97.5 F L Pulse Rate 68 76 86 Respiratory Rate 18 20 Blood Pressure 194/92 H 146/66 H Pulse Oximetry 99 98 02/19/18 00:00 02/19/18 08:00 02/19/18 09:00 Temperature 98.3 F 98.0 F Pulse Rate 50 L 50 L 50 L Respiratory Rate 16 18 Blood Pressure 116/66 117/76 Pulse Oximetry 94 L 98 02/19/18 12:00 Temperature 97.7 F Pulse Rate 73 Respiratory Rate 18 Blood Pressure 105/69 Pulse Oximetry 97 Intake & Output 02/18/18 02/19/18 02/19/18 18:59 06:59 18:59 Other: # Voids 2 Date of Last Bowel Movement 02/18/18 02/18/18 <LauraAide G - 02/19/18 15:28> Narrative: GENERAL: elderly male laying in bed, in no acute distress SKIN: Warm and dry. HEAD: Atraumatic. Normocephalic. EYES: No scleral icterus. No injection or drainage. ENT: No nasal bleeding or discharge. Mucous membranes pink and moist. Edentulous NECK: Trachea midline. No JVD. CARDIOVASCULAR: Regular rate and rhythm. RESPIRATORY: No accessory muscle use. Diffuse end expiratory wheezing. Breath sounds equal bilaterally. GASTROINTESTINAL: Abdomen obese, soft, non-tender, nondistended. MUSCULOSKELETAL: Extremities without clubbing, cyanosis, or edema. No obvious deformities. No tenderness of chest wall/sternum. NEUROLOGICAL: Awake and alert. No obvious cranial nerve deficits. Motor grossly within normal limits. Slurred speech. Oriented to self and place, not to time. <Aide Sanchez 02/19/18 15:28> - Urinary Catheter Management Indwelling Urethral Catheter Cath placed during this visit: no <Maria Dolores Morin 02/20/18 07:50> yes, but has since been removed by the nurse <Aide Sanchez 02/19/18 15:28> Reason for continuing: Not indwelling catheter <Aide Sanchez 02/19/18 15:28> Removal date: 02/16/18 <Aide Sanchez 02/19/18 15:28> Removal time: 23:01 <Aide Sanchez 02/19/18 15:28> Assessment and Plan - Assessment (1) Neurocognitive disorder Code(s): R41.9 - Unspecified symptoms and signs involving cognitive functions and awareness Status: Acute (2) Schizophrenia Code(s): F20.9 - Schizophrenia, unspecified Status: Acute (3) Alcohol abuse Code(s): F10.10 - Alcohol abuse, uncomplicated Status: Chronic (4) Nutrition, metabolism, and development symptoms Code(s): R63.8 - Other symptoms and signs concerning food and fluid intake Status: Acute (5) DVT prophylaxis Status: Acute <Maria Dolores Morin 02/20/18 07:50> (1) Neurocognitive disorder Code(s): R41.9 - Unspecified symptoms and signs involving cognitive functions and awareness Status: Acute Plan: Per chart review pt has a hx of dementia, schizophrenia, and Wernicke-Korsakoff syndrome. This likely contributes to his sx of confusion and reason for admission to the hospital from [facility]. Will consider normal pressure hydrocephalus (incontinence, multiple falls, and impaired cognition) vs dementia vs schizophrenia Head CT on admission: 1. Moderate severity central cortical atrophy. 2. No acute findings in the brain. UA: negative UDS: negative -Per psychiatry's note pt does not have capacity to make his own medical decisions -Case management consulted to arrange placement -PT/OT consulted -PT recommends rehab -OT states that patient requires supervision at home for safety -ST consulted for cognitive evaluation and swallow evaluation -MOCA score 30 -Dependent, total help required -Signed off on 02/18 due to the fact that patient's severe cognitive impairments are not of new onset -If any worsening of sx will consult neurology (2) Schizophrenia Code(s): F20.9 - Schizophrenia, unspecified Status: Acute Plan: Patient with a history of schizophrenia. Was under psychiatric admission at [facility]. -Wolf act lifted by Psychiatry, Dr. Cortes -The patient is poorly communicative, with marked incoherent speech, just oriented in person, with significant impairment in immediate recall, abstraction , executive function. Patient's mental status seems to be consistent with chronic schizophrenia with neurocognitive impairment. He does not meet criteria for involuntary psychiatric admission. The patient does not have capacity to take medical decisions at the moment. -Continue at home medications of Keppra 500 mg po twice daily and Seroquel XR 150 mg p.o. daily -Keppra level pending (3) Alcohol abuse Code(s): F10.10 - Alcohol abuse, uncomplicated Status: Chronic Plan: Patient admits to a long history of alcohol abuse. He states that his last drink was a few days ago -Initiate CIWA protocol as a precaution -Escalate care as necessary (4) Nutrition, metabolism, and development symptoms Code(s): R63.8 - Other symptoms and signs concerning food and fluid intake Status: Acute Plan: Fluids: tolerating PO Electrolytes: monitor and replete as needed Nutrition: heart-healthy diet GI Prophylaxis: Not indicated at this time (5) DVT prophylaxis Status: Acute Plan: Will hold off on DVT pharmacological prophylaxis due to patient's multiple falls and low platelets -Bilateral SCDs <Aide Sanchez - 02/19/18 15:24> - Assessment and Plan 62-year-old white male with a past medical history of alcohol abuse and schizophrenia presenting to the ED under Wolf act. Admitted for social placement due to unsafe discharge. <Aide Sanchez 02/19/18 15:28> Discussed Condition With: Dr. Morin <Aide Sanchez 02/19/18 15:28> Discharge Planning: Case management consulted for placement back to [facility]. <Aide Sanchez G - 02/19/18 15:28> - Attending Attestation The exam, history, and the medical decision-making described in the above note were completed with the assistance of the resident physician. I reviewed and agree with the findings presented. I attest that I had a [id number] encounter with the patient on the same day, and personally performed and documented my assessment and findings in the medical record. <Maria Dolores Morin - 02/20/18 07:50>
[2018-02-20 06:21] LABS: Hematocrit 36.4 % (39.0-51.0); Hemoglobin 12.3 gm/dL (13.0-17.0); Mean Corpuscular HGB Conc 33.8 % (32.0-36.0); Mean Corpuscular Hemoglobin 30.5 pg (27.0-34.0); Mean Corpuscular Volume 90.3 fL (80.0-100.0); Mean Platelet Volume 8.5 fL (7.0-11.0); Platelet Count 58 th/mm3 (150-450); Red Blood Count 4.03 mil/mm3 (4.50-5.90); Red Cell Distribution Width 13.7 % (11.6-17.2); White Blood Count 3.3 th/mm3 (4.0-11.0)
[2018-02-20 06:48] LABS: Calcium 8.4 mg/dL (8.5-10.1); Carbon Dioxide 26.9 meq/L (21.0-32.0); Potassium 3.8 meq/L (3.5-5.1)
[2018-02-20 06:51] LABS: Creatine Kinase 249 U/L (39-308)
[2018-02-20 07:04] LABS: Creatine Kinase MB 3.6 ng/mL (0.5-3.6)
[2018-02-20] MEDS: Sertraline 50 MG Tablet PO SCH (10:00)
[2018-02-20] MEDS: QUEtiapine 25 MG Tablet PO SCH (10:00)
[2018-02-20] MEDS: levETIRAcetam 500 MG Tablet PO SCH (10:00)
[2018-02-20] MEDS: Senna/Docusate Sodium 8.6/50 MG Tablet PO SCH (10:01)
--- NOTE | 2018-02-20 14:44 | P.PNFP ---
Subjective Interval history: 02/20/18 14:30 [facility] confirmed that patient will be able to be transferred this afternoon. Patient seen and examined this morning at 1100. Patient states that he is feeling well. No complaints at this time. Patient states that his the chest pain that he complained of yesterday has resolved completely without further intervention. Denies any chest pain, shortness of breath, nausea, vomiting, abdominal pain, or leg pain. Patient medicall stable and ready for discharge pending placement at [facility]. <Vale Azul B - 02/20/18 17:40> Results - Labs Result diagrams: 02/20/18 05:35 02/20/18 05:35 <Maria Dolores Morin - 02/21/18 16:37> Abnormal lab results 02/20/18 02/20/18 02/20/18 Range/Units 05:35 05:35 05:35 WBC 3.3 L (4.0-11.0) th/mm3 RBC 4.03 L (4.50-5.90) mil/mm3 Hgb 12.3 L (13.0-17.0) gm/dL Hct 36.4 L (39.0-51.0) % Plt Count 58 L (150-450) th/mm3 Chloride 110 H (98-107) meq/L Estimated GFR 86 L (>89) mL/min Random Glucose 73 L (74-106) mg/dL Calcium 8.4 L (8.5-10.1) mg/dL Troponin I Less than 0.02 L (0.02-0.05) ng/mL Short CBC 02/20/18 Range/Units 05:35 WBC 3.3 L (4.0-11.0) th/mm3 Hgb 12.3 L (13.0-17.0) gm/dL Hct 36.4 L (39.0-51.0) % Plt Count 58 L (150-450) th/mm3 BMP 02/20/18 05:35 Sodium 145 Potassium 3.8 Chloride 110 H Carbon Dioxide 26.9 BUN 16 Creatinine 0.90 Calcium 8.4 L Cardiac Enzymes 02/20/18 Range/Units 05:35 Total Creatine Kinase 249 (39-308) U/L CK-MB (CK-2) 3.6 (0.5-3.6) ng/mL Troponin I Less than 0.02 L (0.02-0.05) ng/mL <Jorge AlbertoAnna MarieVale B - 02/20/18 14:44> Physical Exam Vital signs: Intake & Output 02/20/18 02/21/18 02/21/18 18:59 06:59 18:59 Other: Date of Last Bowel Movement 02/20/18 <MayMaria Dolores orellana R - 02/21/18 16:37> Vital Signs 02/19/18 16:00 02/19/18 19:53 02/19/18 23:42 Temperature 98.0 F 97.8 F 98.2 F Pulse Rate 69 73 58 L Respiratory Rate 12 18 18 Blood Pressure 106/69 139/77 113/56 L Pulse Oximetry 96 96 95 02/20/18 00:00 02/20/18 03:10 02/20/18 03:17 Temperature 98.0 F 98.0 F Pulse Rate 60 62 65 Respiratory Rate 18 18 Blood Pressure 126/74 126/74 Pulse Oximetry 95 95 02/20/18 04:00 02/20/18 08:00 02/20/18 09:00 Temperature 98.1 F Pulse Rate 67 64 67 Respiratory Rate 20 Blood Pressure 121/65 Pulse Oximetry 97 02/20/18 12:00 Temperature 97.9 F Pulse Rate 63 Respiratory Rate 18 Blood Pressure 116/61 Pulse Oximetry 97 Intake & Output 02/19/18 02/20/18 02/20/18 18:59 06:59 18:59 Intake Total 1720 / 1720 Balance 1720 / 1720 Intake: IV 1000 / 1000 Oral 720 / 720 Other: # Voids 5 5 Date of Last Bowel Movement 02/19/18 02/20/18 02/20/18 # Bowel Movements 1 <AsyanorbertVale 02/20/18 14:44> - Constitutional no acute distress <Jorge AlbertoVale B 02/20/18 16:49> Comments: Sitting up in bed <Jorge AlbertoVale B 02/20/18 16:49> - Routine HEENT Exam Head: Present: normocephalic, atraumatic <Jorge AlbertoVale B 02/20/18 14:52> Eye: Present: EOMI. Absent: conjunctivae pink <Jorge AlbertoVale B 02/20/18 14: 52> - Routine Respiratory Exam Absent: stridor <Vale Azul 02/20/18 14:52> Comments: mild diffuse expiratory wheezing. breath sounds equal bilaterally. <Vale Azul 02/20/18 14:52> - Routine Cardiovascular Exam Present: RRR. Absent: murmur <Vale Azul 02/20/18 14:52> - Routine Abdominal Exam Present: soft, normoactive bowel sounds. Absent: tenderness <Vale Azul 02/20/18 14:52> - Routine Extremities Exam Present: pulses intact. Absent: edema, calf tenderness <Vale Azul 01/03 14:52> - Routine Skin Exam Present: dry, warm <Vale Azul 02/20/18 14:52> - Routine Neurological Exam Present: alert <Vale Azul 02/20/18 14:52> awake. slurred speech at baseline. <Vale Azul 02/20/18 14:52> - Urinary Catheter Management Indwelling Urethral Catheter Cath placed during this visit: no <Maria Dolores Morin 02/21/18 16:37> yes, but has since been removed by the nurse <Jorge AlbertoVale 02/20/18 17:40> Reason for continuing: Not indwelling catheter <Vale Azul 02/20/18 14: 44> Removal date: 02/16/18 <Vale Azul 02/20/18 14:44> Removal time: 23:01 <Vale Azul 02/20/18 14:44> Assessment and Plan - Assessment (1) Neurocognitive disorder Code(s): R41.9 - Unspecified symptoms and signs involving cognitive functions and awareness Status: Acute (2) Schizophrenia Code(s): F20.9 - Schizophrenia, unspecified Status: Acute (3) Alcohol abuse Code(s): F10.10 - Alcohol abuse, uncomplicated Status: Chronic (4) Nutrition, metabolism, and development symptoms Code(s): R63.8 - Other symptoms and signs concerning food and fluid intake Status: Acute (5) DVT prophylaxis Status: Acute <Maria Dolores Morin 02/21/18 16:37> (1) Neurocognitive disorder Code(s): R41.9 - Unspecified symptoms and signs involving cognitive functions and awareness Status: Acute Plan: Per chart review pt has a hx of dementia, schizophrenia, and Wernicke-Korsakoff syndrome. This likely contributes to his sx of confusion and reason for admission to the hospital from [facility]. Will consider normal pressure hydrocephalus (incontinence, multiple falls, and impaired cognition) vs dementia vs schizophrenia Head CT on admission: 1. Moderate severity central cortical atrophy. 2. No acute findings in the brain. UA: negative UDS: negative -Per psychiatry's note pt does not have capacity to make his own medical decisions -PT/OT consulted -PT recommends rehab -OT states that patient requires supervision at home for safety -ST consulted for cognitive evaluation and swallow evaluation -MOCA score 11/15 -Dependent, total help required -Signed off on 02/18 due to the fact that patient's severe cognitive impairments are not of new onset -If any worsening of sx will consult neurology (2) Schizophrenia Code(s): F20.9 - Schizophrenia, unspecified Status: Acute Plan: Patient with a history of schizophrenia. Was under psychiatric admission at [facility]. -Wolf act lifted by Psychiatry, Dr. Cortes -The patient is poorly communicative, with marked incoherent speech, just oriented in person, with significant impairment in immediate recall, abstraction , executive function. Patient's mental status seems to be consistent with chronic schizophrenia with neurocognitive impairment. He does not meet criteria for involuntary psychiatric admission. The patient does not have capacity to take medical decisions at the moment. -Continue at home medications of Keppra 500 mg po twice daily and Seroquel XR 150 mg p.o. daily (3) Alcohol abuse Code(s): F10.10 - Alcohol abuse, uncomplicated Status: Chronic Plan: Patient admits to a long history of alcohol abuse. He states that his last drink was a few days ago -Initiate CIWA protocol as a precaution 02/17 -Escalate care as necessary (4) Nutrition, metabolism, and development symptoms Code(s): R63.8 - Other symptoms and signs concerning food and fluid intake Status: Acute Plan: Fluids: tolerating PO Electrolytes: monitor and replete as needed Nutrition: heart-healthy diet GI Prophylaxis: Not indicated at this time (5) DVT prophylaxis Status: Acute Plan: Will hold off on DVT pharmacological prophylaxis due to patient's multiple falls and low platelets -Bilateral SCDs <Vale Azul 02/20/18 17:39> - Assessment and Plan 62-year-old white male with a past medical history of alcohol abuse and schizophrenia presenting to the ED under Wolf act. Admitted for social placement due to unsafe discharge. <Vale Azul 02/20/18 14:52> Discussed Condition With: Dr. Morin <Vale Azul 02/20/18 15:14> Discharge Planning: Patient is medically stable for transfer pending placement at [facility] <Vale Azul 02/20/18 16:49> - Attending Attestation The exam, history, and the medical decision-making described in the above note were completed with the assistance of the resident physician. I reviewed and agree with the findings presented. I attest that I had a [id number] encounter with the patient on the same day, and personally performed and documented my assessment and findings in the medical record. <Maria Dolores Morin - 02/21/18 16:37>
--- NOTE | 2018-03-09 11:39 | P.DS ---
Date of admission: 02/17/18 10:18 Primary care physician: No Primary Care Physician Brief History from admission: Mr. Hatch is a 62-year-old white male with a past medical history of alcohol abuse, schizophrenia presenting to the ED due to ex parte order from [facility]. After speaking with Cortez at [facility] it was reported that the patient was just received there from the [facility] for a psychiatric admission due to his schizophrenia. While at the facility the patient was actively hallucinating, seeing demons on his bed. As soon as he had arrived he started falling. He had fallen about 8-9 times in a 24 hour period. The patient was also incontinent and unable to perform his ADLs. He was confused and needed one-on-one care, therefore he was sent to the hospital under Wolf act. Upon interviewing the patient, he stated that he was caught with some guns and taken to half-way. He states that he was at [facility] for alcohol detox. He states that he drinks alcohol every day. When asked to quantify, he states that he drinks too much. His last drink was a few days ago. His last alcohol withdrawal was a few weeks ago. He has been intubated before. He states that he does not feel that he is withdrawing now. Interviewing the patient was difficult due to his slurred speech, cognition, and confusion. DS: Diagnosis - Discharge Diagnosis (1) Neurocognitive disorder Status: Acute (2) Schizophrenia Status: Acute (3) Alcohol abuse Status: Chronic (4) Nutrition, metabolism, and development symptoms Status: Acute (5) DVT prophylaxis Status: Acute DS: Summary Hospital Course: Mr. Hatch is a 62-year-old white male with a past medical history of alcohol abuse, schizophrenia presenting to the ED due to ex parte order from [facility]. The patient was to be medically cleared so he could be discharged back to the facility. Head CT showed Moderate severity central cortical atrophy and no acute findings in the brain. CT abdomen/pelvis showed no acute findings and calcified gallstones. UA was negative. UDS was negative. Psychiatry stated that pt did not have capacity to make his own medical decisions. PT/OT consulted. PT recommended rehab. OT stated that patient requires supervision at home for safety. ST was consulted for cognitive evaluation. MOCA score 3/30 indicating severe cognitive impairment. Pt was dependent and total help was required. Pt was discharged back to [facility] on 02/20 due to legally him not able to go anywhere else per his assistant case manager at . - Time Spent with Patient Total time spent providing and/or coordinating discharge services: - Quality: VTE Deep Vein Thrombosis/Pulmonary Embolism Present on Admission: No Results Procedures completed during hospitalization: none - Impressions ITS Impressions Abdomen/Pelvis CT 02/17/18 00:00 CONCLUSION: 1. No acute findings. 2. Calcified gallstones. Chest X-Ray 02/17/18 00:00 CONCLUSION: No acute intrathoracic disease. Head CT 02/17/18 00:00 CONCLUSION: 1. Moderate severity central cortical atrophy. 2. No acute findings in the brain. Discharge Plan - Discharge Disposition Patient Disposition: Disch To Another Hospital - Discharge Condition Condition: Stable - Discharge Order Discharge Orders: Discharge Order (Routine); Ordered 02/20/18 Ordered By: Vale Azul - Physicians Team Primary Care Provider: Primary Care Physici,No Attending Provider: Maria Dolores Morin
== END 2018-02-20 17:01 | disposition short-term general hospital (02) ==
LOC: NEPE 19:45 → NEDA 19:45 → NEPHCDU 19:45
PROVIDERS: ADMIT Family Medicine; ATTEND Family Medicine